=== PATIENT | male | born 1950 | race Caucasian/White ===

== ENCOUNTER 2021-07-31 11:37 | Inpatient (IN) ==
[2021-07-31] MEDS ORDERED: BUMETANIDE 1 MG in SYRINGE 0 ML IV ONE (12:14)
--- NOTE | 2021-07-31 12:15 | Emergency Department Note ---
History of Present Illness General Chief complaint: Shortness of Breath/Dyspnea Stated complaint: CARDIAC ASSESSMENT Time Seen by Provider: 07/31/21 11:41 History of Present Illness 71-year-old male presents to the ED with a chief complaint of some abnormal outpatient test results. He states that Dr. Castro's office called this morning and told him that there was some abnormalities on his test results. Th ey told him to go to the ER for evaluation. The patient states that he has a history of CHF. He does have home health nursing. The patient other than feeling some shortness of breath denies any specific complaints. He states that he did not really want to come to the hospital and try to talk to the home health nurse out of calling the ambulance. Allergies Allergy/AdvReac Type Severity Reaction Status Date / Time Penicillins Allergy Verified 07/18/09 03:11 N Allergy Unknown Uncoded 07/26/02 18:15 NKFA Allergy Unknown Uncoded 07/26/02 18:15 NONE Allergy Unknown Uncoded 07/26/02 18:15 PCN Allergy Unknown Uncoded 07/26/02 18:15 UNKNOWN Allergy Unknown Uncoded 07/26/02 18:15 Past Med/Surg History Social History Smoking Status: Former smoker Tobacco Type: Cigarettes Preferred Language: Irish Feels Safe at Home: Yes Review of Systems A total of 10 systems reviewed and were otherwise negative Physical Exam Vital Signs Vital Signs - 24 hr 07/31/21 11:54 Temperature 36.7 C Temperature Source Oral Pulse Rate [Apical] 83 Pulse Rhythm Regular Pulse Rhythm [Apical] Regular Respiratory Rate 20 Respiratory Effort / Characteristics Non-Labored Spontaneous Respiratory Depth Normal Respiratory Pattern Regular Blood Pressure 131/78 Blood Pressure [Right Arm] 128/73 Blood Pressure Mean 95 Blood Pressure Mean [Right Arm] 91 Blood Pressure Position Semi-fowlers Blood Pressure Position [Right Arm] Lying Pulse Oximetry 96 Oxygen Delivery Method Room Air Sepsis Recent Fever Within 48 Hours No Sepsis New/Unexplained Change in Mental Status No Sepsis Action Taken by Nursing No Action Required CONSTITUTIONAL/VITAL SIGNS: Reviewed / noted above. GENERAL: Non-toxic in appearance. INTEGUMENTARY: Warm, dry, and [place]. HEAD: Normocephalic. EYES: without scleral icterus or trauma. ENT/OROPHARYNX: clear and moist. LYMPHADENOPATHY/NECK: Is supple without lymphadenopathy or meningismus. RESPIRATORY: Clear to auscultation bilaterally. No increased work of breathing. CARDIOVASCULAR: Regular rate and rhythm. GI/ABDOMEN: Soft and nontender. No organomegaly or pulsatile mass. EXTREMITIES: Warm and well perfused. BACK: No CVA tenderness. NEUROLOGICAL: Intact without focal deficits. PSYCHIATRIC: normal affect. MUSCULOSKELETAL: Normally developed with good muscle tone. TRIAGE NURSING DOCUMENTATION REVIEWED. Medical Decision Making Medical Records Attestation: I reviewed the patient's medical records. Home Medications Current Medication List: was personally reviewed by me Laboratory Data Attestation: I reviewed the patient's lab results. Result diagrams: 07/31/21 11:45 07/31/21 11:45 Lab Results 07/31/21 07/31/21 07/31/21 Range/Units 11:45 11:45 13:00 WBC 6.48 (4.8-10.8) K/uL RBC 4.12 L (4.7-6.1) M/uL Hgb 12.5 L (14.0-18.0) g/dL Hct 37.5 L (42-52) % MCV 91.0 (80-100) fL MCH 30.3 (25-34) pg MCHC 33.3 (32-36) g/dL RDW Std Deviation 72.5 H (36.4-46.3) fL RDW Coeff of Joao 22.3 H (11.5-14.5) % Plt Count 355 (130-400) K/uL MPV 10.2 (7.4-10.4) fL Immature Gran % (Auto) 0.3 % Neut % (Auto) 76.1 % Lymph % (Auto) 10.6 % [place] % (Auto) 12.5 % Eos % (Auto) 0.3 % Baso % (Auto) 0.2 % Neut # (Auto) 4.93 (1.4-6.5) K/uL Lymph # (Auto) 0.69 L (1.2-3.4) K/uL [place] # (Auto) 0.81 H (0.11-0.59) K/uL Eos # (Auto) 0.02 (0-0.5) K/uL Baso # (Auto) 0.01 (0-0.2) K/uL Immature Gran # (Auto) 0.02 (0.00-0.02) K/uL Anisocytosis Present Sodium 135 L (136-145) mmol/L Potassium 3.7 (3.5-5.1) mmol/L Chloride 101 (98-107) mmol/L Carbon Dioxide 22 (21-32) mmol/L Anion Gap 12 H (3-11) BUN 15 (6-23) mg/dl Creatinine 0.87 (0.6-1.4) mg/dl Est Cr Clr Drug Dosing 83.5 ml/min Est GFR ( Amer) 101.3 ml/min Est GFR (Non-Af Amer) 87.4 ml/min BUN/Creatinine Ratio 17.2 (10-20) Glucose 93 (70-99(Fasting)) mg/dl Calcium 9.1 (8.5-10.1) mg/dl Total Bilirubin 2.4 H (0.2-1.0) mg/dl AST 32 (13-39) U/L ALT 33 (7-52) U/L Alkaline Phosphatase 238 H (34-104) U/L Troponin I 0.03 (0-0.04) ng/ml Total Protein 7.1 (6.0-8.3) gm/dl Albumin 3.0 L (3.4-5.0) gm/dl Globulin 4.1 H (2.5-4.0) gm/dl Albumin/Globulin Ratio 0.7 L (0.9-2) Lipase 23 (11-82) U/L SARS-CoV-2, RNA, NAAT NEGATIVE (NEGATIVE) Imaging Data Radiologist's Impression: Chest X-Ray 07/31/21 12:05 SINGLE VIEW CHEST CLINICAL HISTORY: Atypical chest pain. FINDINGS: An AP, portable, upright chest radiograph is obtained. No prior studies are available for comparison at the time of dictation. The examination is degraded by portable technique and patient rotation. A 2-lead cardiac AICD is in place and partially obscures the left upper chest. The heart is enlarged noting atherosclerotic calcification of the thoracic aorta. Extensive airspace opacities are seen throughout both lungs. There are small pleural effusions. No pneumothorax is seen. The skeletal structures are osteopenic. The bony thorax is grossly intact. Degenerative change and scoliosis is noted in the thoracic spine. IMPRESSION: 1. Cardiomegaly and AICD. 2. Diffuse airspace opacities are seen throughout both lungs and could represent pulmonary edema and/or multifocal pneumonia. Clinical correlation will be required and radiographic follow-up to resolution is recommended. 3. Small pleural effusions. ACT 112: Negative or not required by law. Electronically signed by: Perry Kauffman M.D. 07/31/2021 12:29 PM ECG Data Attestation: I personally reviewed and interpreted this ECG as follows: Additional Comments: Twelve-lead EKG: Per my interpretation shows a normal sinus rhythm at a rate of 80. No ST elevation. No PVCs. Normal QTC. MDM Narrative 71year-old male presents with a chief complaint of abnormal outpatient studies. The patient's outpatient chest x-ray looks like significant congestive heart failure. Patient is treated by Dr. Castro. He did evaluate the patient in the ED. He feels the patient should stay in the hospital for further evaluation and care and diuresis. The patient was given IV Bumex here. His EKG shows a normal sinus rhythm. Chest x-ray shows diffuse airspace opacities most likely related to pulmonary edema and less likely pneumonia. WBC was normal. Hemoglobin 12.5. Chemistry panel was unremarkable. Troponin is negative. Covid test was negative. Impression & Plan Pulmonary edema, Acute exacerbation of CHF (congestive heart failure) Discharge Plan Visit Data Chief Complaint: Shortness of Breath/Dyspnea Stated Complaint: CARDIAC ASSESSMENT ED Provider: Russell Turk Discharge Problem: Pulmonary edema, Acute exacerbation of CHF (congestive heart failure) Patient Disposition: Being Evaluated by Hospitalist Forms Stand Alone Forms: My [facility] Referrals Referrals: Gabo Cruz MD [Primary Care Provider] -
[2021-07-31 12:30] LABS: Basophils # (auto) 0.01 K/uL (0-0.2); Basophils % (auto) 0.2 %; Eosinophils # (auto) 0.02 K/uL (0-0.5); Eosinophils % (auto) 0.3 %; Hematocrit (blood only) 37.5 % (42-52); Hemoglobin 12.5 g/dL (14.0-18.0); Immature Granulocytes # (auto) 0.02 K/uL (0.00-0.02); Immature Granulocytes % (auto) 0.3 %; Lymphocytes # (auto) 0.69 K/uL (1.2-3.4); Lymphocytes % (auto) 10.6 %; Mean Corpuscular Hemoglobin 30.3 pg (25-34); Mean Corpuscular Hgb Conc 33.3 g/dL (32-36); Mean Platelet Volume 10.2 fL (7.4-10.4); Monocytes # (auto) 0.81 K/uL (0.11-0.59); Monocytes % (auto) 12.5 %; Neutrophils # (auto) 4.93 K/uL (1.4-6.5); Neutrophils % (auto) 76.1 %; Platelet Count 355 K/uL (130-400); RDW Coefficient of Variation 22.3 % (11.5-14.5); RDW Standard Deviation 72.5 fL (36.4-46.3); Red Blood Count 4.12 M/uL (4.7-6.1); White Blood Count 6.48 K/uL (4.8-10.8)
--- NOTE | 2021-07-31 12:31 | XRay Report ---
SINGLE VIEW CHEST CLINICAL HISTORY: Atypical chest pain. FINDINGS: An AP, portable, upright chest radiograph is obtained. No prior studies are available for c omparison at the time of dictation. The examination is degraded by portable technique and patient rot ation. A 2-lead cardiac AICD is in place and partially obscures the left upper chest. The heart is en larged noting atherosclerotic calcification of the thoracic aorta. Extensive airspace opacities are s een throughout both lungs. There are small pleural effusions. No pneumothorax is seen. The skeletal s tructures are osteopenic. The bony thorax is grossly intact. Degenerative change and scoliosis is not ed in the thoracic spine. IMPRESSION: 1. Cardiomegaly and AICD. 2. Diffuse airspace opacities are seen throughout both lungs and could represent pulmonary edema and/ or multifocal pneumonia. Clinical correlation will be required and radiographic follow-up to resoluti on is recommended. 3. Small pleural effusions. ACT 112: Negative or not required by law. Electronically signed by: Perry Kauffman M.D. 07/31/2021 12:29 PM
[2021-07-31 12:47] LABS: Troponin I 0.03 ng/ml (0-0.04)
[2021-07-31 12:48] LABS: Albumin Globulin Ratio 0.7 (0.9-2); BUN Creatinine Ratio 17.2 (10-20); Bilirubin,Total 2.4 mg/dl (0.2-1.0); Calcium 9.1 mg/dl (8.5-10.1); Creatinine Clr Calc Pharmacy 83.5 ml/min; Est GFR (African American) 101.3 ml/min; Est GFR (Non-African American) 87.4 ml/min; Globulin 4.1 gm/dl (2.5-4.0); Potassium 3.7 mmol/L (3.5-5.1); Total Protein 7.1 gm/dl (6.0-8.3)
[2021-07-31 12:50] LABS: Anisocytosis Present
--- NOTE | 2021-07-31 15:07 | Cardiology Consultation ---
Date of Consultation July 31, 2021 Assessment & Plan (1) Acute on chronic HFrEF (heart failure with reduced ejection fraction): (2) Ischemic cardiomyopathy with implantable cardioverter-defibrillator (ICD): -Patient is followed with the undersigned as an outpatient since 2016. At that time he already had a longstanding history of ischemic cardiomyopathy, with LAD territory scar, severe LV systolic dysfunction. He had previously declined primary prevention AICD, and work-up at that time included a nuclear stress test with large distal LAD territory scar, severe LV systolic dysfunction. He was seen by electrophysiology and discussed AICD implantation but ultimately patient declined to have the procedure performed. -In May,, he was at a family wedding in [place] and suffered a witnessed sudden cardiac arrest event while on the dance floor. He received bystander CPR from a family member, and successful resuscitation with an AED. He was subsequently hospitalized at [facility] in [place], underwent cardiac catheterization with left main stenting, implantation of Medtronic AICD. -At the time of outpatient visit with me in March, he was noted to be markedly volume overloaded, 2+ pitting lower extremity edema, weight 215 pounds at that time. His most recent recorded weight in the [facility] outpatient chart was down to 175 pounds as documented within the last week. I am actually quite surprised at the patient's cachectic appearance, and believe that this is new over the last 3 months. Chest x-ray reveals pulmonary edema pattern. SARS-CoV-2 screen negative. 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 Patient has been on low-dose amiodarone 100 mg daily, dose titrated down few months ago, with amiodarone treatment since his May/2019 cardiac arrest event, with findings of nonsustained VT on past device monitoring. Although amiodarone induced lung toxicity could have a similar appearance on the chest x-ray, per comparison with outpatient chest x-ray perf ormed March,, the findings appear new which would support that this is congestive heart failure. This will need to be followed to see if it improves with diuretic therapy. The patient once again describes nonadherence with outpatient diuretic therapy, with noted painful, vigorous urination. He states he has been off of diuretic therapy for at least 2 weeks or at least has been taking less than his prescribed dose. At present we will plan on starting Bumex 1 mg x 1 in the ER, and 1 mg daily for now, with dose to be adjusted per the response. His most recent PSA was in 2013. Given ongoing urinary symptoms and cachexia will obtain PSA. Continue chronic aspirin and clopidogrel. As noted, had previously been on aspirin plus prasugrel, subsequently discontinued after profound anemia/GI bleeding event. Recent TSH as drawn on 07/29/2021 was elevated at 16.5 microunits units per liter, and levothyroxine dose was titrated to 75 g daily on 07/30/2021, however patient really has not had time to start this yet. History of Present Illness History of Present Illness Marquis Nolan is a 71-year-old male seen in cardiology consultation per the request of Dr. Turk for the evaluation of shortness of breath. Patient well- known to the undersigned. He has a complex cardiac history as noted below, and is followed for ischemic cardiomyopathy with severe left ventricular systolic dysfunction. He has had progressive shortness of breath. At the time of his cardiology follow-up visit with the undersigned in March, he was transitioned to torsemide. At time of follow-up visit on 06/18/2021 his weight had trended up, torsemide dose increased from 20 mg daily to 20 mg daily alternating with 40 mg daily. Patient has had progressive shortness of breath, weight gain, chest x-ray performed per the request of Corey at home this week on 07/29/2021 consistent with congestive heart failure with severe bilateral pulmonary edema. At the time my assessment in the emergency department. Patient was noted to have generalized weakness and noted cachexia which I feel has progressed over the last year and certainly over the last few months since I had seen him as an outpatient in March. Problem List: 1.Longstanding history of ischemic heart disease, severe ischemic cardiomyopathy 2.Remote LAD territory myocardial infarction circa 1999 3.Cardiac catheterization performed at [facility], without intervention per patient. 4.Apical aneurysm, previously prescribed Coumadin anticoagulation discontinued by the patient in May 2017 5.Witnessed cardiac arrest in May 2019, with return of spontaneous circulation prior to EMS arrival. Ejection fraction 15 to 19% at that time 6.NYHA Class III (recent III-IV) Systolic Congestive Heart Failure. 7.Cardiac catheterization ([facility]) on 06/14/2019 revealed a 70-75% stenosis of the ostium of the left main trunk, 40% stenosis of the LAD, 35% diffuse disease the proximal right coronary artery stenosis, status post high risk PCI on 06/15/2019, successful drug-eluting stent implantation to the left main 8.Status post Medtronic dual-chamber pacemaker defibrillator implantation on June 18, 2019 ([place]) 9.Hospitalization in December 2020 with pneumonia 10.Hospitalization in December 2020 a couple of days after being discharged from the pneumonia hospitalization with severe symptomatic anemia, hemoglobin of 5.4. Profound acute blood loss attributed to duodenitis in the setting of chronic anti-platelet therapy (aspirin, prasugrel). 11.Hypertension 12.Hyperlipidemia with perceived intolerance to most lipid lowering therapies, tolerating atorvastatin. 13.GERD. Allergies Allergy/AdvReac Type Severity Reaction Status Date / Time Penicillins Allergy Verified 07/18/09 03:11 N Allergy Unknown Uncoded 07/26/02 18:15 NKFA Allergy Unknown Uncoded 07/26/02 18:15 NONE Allergy Unknown Uncoded 07/26/02 18:15 PCN Allergy Unknown Uncoded 07/26/02 18:15 UNKNOWN Allergy Unknown Uncoded 07/26/02 18:15 Patient History Social History Smoking Status: Former smoker Tobacco Type: Cigarettes Preferred Language: Cook Islander Feels Safe at Home: Yes Review of Systems Review of Systems: All systems reviewed & are unremarkable except as noted in HPI & below Integumentary: Ecchymosis over the right shoulder noted, with recent "falls "per patient Physical Exam Physical Exam: Temp Pulse Resp BP Pulse Ox 36.7 C 83 20 128/79 93 07/31/21 13:54 07/31/21 13:54 07/31/21 13:54 07/31/21 13:54 07/31/21 13:54 Constitutional: + cachectic Respiratory: normal respiratory effort, lungs clear to auscultation Cardiovascular: Rate/Rhythm: regular rate and regular rhythm Heart Sounds: no murmur Vessels: + JVD Extremities: + edema (1+ lower extremity edema, mild erythema, several ulcerations) Chest (Breasts): Additional Comments: Left infraclavicular device pocket clean dry and intact Gastrointestinal (Abdomen): normal bowel sounds, soft, nontender, no hepatosplenomegaly Skin: Ecchymosis over the right shoulder with multiple recent "falls ". Neurologic: PERRL, EOMI, accommodation nl, no face palsy, no dysarthria Results & Data ([facility]) Vital Signs (Past 12 Hours) Vital Signs Temp Pulse Resp BP BP Pulse Ox 07/31/21 13:54 36.7 C 83 20 128/79 93 07/31/21 11:54 36.7 C 83 20 131/78 128/73 96 Laboratory Results Cardiac Enzymes 07/31/21 Range/Units 11:45 AST 32 (13-39) U/L Troponin I 0.03 (0-0.04) ng/ml CBC 07/31/21 Range/Units 11:45 WBC 6.48 (4.8-10.8) K/uL RBC 4.12 L (4.7-6.1) M/uL Hgb 12.5 L (14.0-18.0) g/dL Hct 37.5 L (42-52) % Plt Count 355 (130-400) K/uL Neut # (Auto) 4.93 (1.4-6.5) K/uL Lymph # (Auto) 0.69 L (1.2-3.4) K/uL [place] # (Auto) 0.81 H (0.11-0.59) K/uL Eos # (Auto) 0.02 (0-0.5) K/uL Baso # (Auto) 0.01 (0-0.2) K/uL Comprehensive Metabolic Panel 07/31/21 Range/Units 11:45 Sodium 135 L (136-145) mmol/L Potassium 3.7 (3.5-5.1) mmol/L Chloride 101 (98-107) mmol/L Carbon Dioxide 22 (21-32) mmol/L BUN 15 (6-23) mg/dl Creatinine 0.87 (0.6-1.4) mg/dl Glucose 93 (70-99(Fasting)) mg/dl Calcium 9.1 (8.5-10.1) mg/dl AST 32 (13-39) U/L ALT 33 (7-52) U/L Alkaline Phosphatase 238 H (34-104) U/L Total Protein 7.1 (6.0-8.3) gm/dl Albumin 3.0 L (3.4-5.0) gm/dl Intake and Output 07/30/21 07/31/21 07/31/21 22:59 06:59 14:59 Other: Weight 84.3 kg Weight Measurement Method Built in [facility] Patient Weight 08/01/21 06:59 Weight 84.3 kg Diagnostic Findings EKG performed 07/31/2021 reveals normal sinus rhythm 81 bpm, nonspecific IVCD, age-indeterminate anterolateral infarction pattern, relatively unchanged compared to outpatient EKG dated 03/31/2021 Summary of transthoracic echocardiogram performed 10/29/2019: The left ventricular cavity is severely dilated (LVED volume >100 ml/m^2). The wall thickness is mildly increased in segments with normal wall motion. There is an extensive left anterior descending distribution infarct present with scarring and moderate expansion of the apex including the atypical inferior wall. All other wall segments are mildly hypokinetic The qualitative LV ejection fraction is 25-29% (severely reduced). The left atrium is moderately enlarged (42-48 ml/m^2). The left ventricular diastolic function is mildly abnormal (grade I). Moderate aortic valve sclerosis is present. Significant mitral regurgitation is absent. Compared to last available study changes are noted as follows: Mitral insufficiency has decreased, LV apex better visualized
--- NOTE | 2021-07-31 15:20 | History & Physical Report ---
Date of Service July 31, 2021 Assessment & Plan (1) Acute on chronic HFrEF (heart failure with reduced ejection fraction): (2) Ischemic cardiomyopathy with implantable cardioverter-defibrillator (ICD): Plan: Patient is a 71-year-old male with PMH severe ischemic cardiomyopathy, H/O cardiac arrest 2018, s/p ICD, CAD, HTN, HLD, GERD, hypothyroidism presented to ER with complaint BLE edema, exertional SOB, and abnormal chest x-ray. Has noncompliant with diuretics for several weeks as he felt like he urinated too much and it caused burning with urination. Had outpatient CXR on 07/29/21 that showed severe congestive change with diffuse airspace opacities and was referred to ER. In ER patient afebrile, vitals stable. No leukocytosis CXR: Diffuse airspace opacities are seen throughout both lungs and could represent pulmonary edema and/or multifocal pneumonia. Small pleural effusions. Appears to be volume overloaded, and less likely pneumonia, procalcitonin not elevated In ER given bumex 1mg IV Patient starting to urinate, had initial 300ml urine output approximately 20 minutes after Bumex given Continue to monitor I's and O's, daily weight, follow low sodium diet Bumex 1mg IV daily Cardiology consult, spoke to Dr Chase and recommended Bumex 1mg daily Continue amiodarone CBC, BMP in am (3) Leg edema: Plan: Suspect BLE erythema secondary to edema and less likely cellulitis Will hold antibiotics at this time Venous duplex r/o DVT arterial duplex RLE to r/o occlusion (4) CAD (coronary artery disease): Plan: Continue aspirin, plavix, atorvastatin, metoprolol succinate (5) HTN (hypertension): Plan: Continue metoprolol succinate (6) HLD (hyperlipidemia): Plan: Continue statin (7) Hypothyroidism: Plan: Outpatient TSH 16.5 on 07/29/21. Was instructed to increase levothyroxine from 25mcg daily to 50mcg daily x 2 weeks followed by 75mcg daily Continue levothyroxine 50mcg daily Will need outpatient TSH follow up DVT Prophylaxis Lovenox SQ Full Code as per discussion with pt Follows with Dr Cruz for routine care Pt was seen and care coordinated with Dr Nicholson. See addendum History of Present Illness Chief Complaint: abnormal CXR, LE edema Primary Care Provider: Gabo Cruz MD Patient is a 71-year-old male with PMH severe ischemic cardiomyopathy, H/O cardiac arrest 2019, s/p ICD, CAD, HTN, HLD, GERD, hypothyroidism presented to ER with complaint of abnormal chest x-ray. Patient has been followed outpatient with [facility] [place]. Patient has been noncompliant with diuretics for several weeks as he felt like he urinated too much and it caused burning with urination. Recent reported increased BLE edema with erythema and weeping. Patient feels his BLE edema and erythema have improved over past several days. Was started on doxycycline yesterday. Also reports SOB with exertion. Has nonproductive cough. Had outpatient CXR on 07/29/21 that showed severe congestive change with diffuse airspace opacities and was referred to ER. Patient does admit to falling at home a couple of times over past few months. States most recent fall and swelling to right hand which has since improved. Denies fever/chills, diaphoresis, N/V/D/C, KIM, dizziness, syncope, vision changes, neck pain, CP, palpitations, sore throat, choking, otalgia, rhinorrhea, abdominal pain, paresthesias, extremity weakness, other rashes, hematuria. Allergies Allergy/AdvReac Type Severity Reaction Status Date / Time ezetimibe [From Zetia] Allergy Unknown Unverified 07/31/21 16:58 gemfibrozil Allergy Unknown Unverified 07/31/21 16:56 Penicillins Allergy Verified 07/18/09 03:11 simvastatin Allergy Unknown Unverified 07/31/21 16:57 Home Medications Medication Instructions Recorded Confirmed Type Lactobacillus acidophilus 1.5 mg 250 mmu cells PO DAILY 07/31/21 07/31/21 History (250 million cell) capsule (Probiotic Acidophilus) amiodarone 100 mg tablet 100 mg PO DAILY 07/31/21 07/31/21 History aspirin 81 mg tablet,delayed 81 mg PO DAILY 07/31/21 07/31/21 History release atorvastatin 40 mg tablet 60 mg PO DAILY 07/31/21 07/31/21 History cefpodoxime 200 mg tablet 200 mg PO BID 07/31/21 07/31/21 History clopidogrel 75 mg tablet 75 mg PO DAILY 07/31/21 07/31/21 History doxycycline hyclate 100 mg capsule 100 mg PO BID 07/31/21 07/31/21 History fluticasone propionate 50 2 spray INTRANASAL DAILY 07/31/21 07/31/21 History mcg/actuation nasal spray,suspension levothyroxine 75 mcg tablet 75 mcg PO DAILYBB 07/31/21 07/31/21 History metoprolol succinate 25 mg 25 mg PO DAILY 07/31/21 07/31/21 History tablet,extended release 24 hr nitroglycerin 0.4 mg sublingual 0.4 mg SUBLINGUAL UD PRN 07/31/21 07/31/21 History tablet potassium chloride 10 mEq 30 meq PO Q2D 07/31/21 07/31/21 History capsule,extended release potassium chloride 10 mEq 40 meq PO Q2D 07/31/21 07/31/21 History capsule,extended release potassium chloride 10 mEq 20 meq PO Q2D 07/31/21 07/31/21 History tablet,extended release(part/cryst) (Klor-Con M) potassium chloride 10 mEq 40 meq PO Q2D 07/31/21 07/31/21 History tablet,extended release(part/cryst) (Klor-Con M) torsemide 20 mg tablet 20 mg PO UD 07/31/21 07/31/21 History tramadol 50 mg tablet 50 mg PO BID PRN 07/31/21 07/31/21 History Past Med/Surg History Medical History (Updated 07/31/21 @ 18:28 by Pina Lara PA-C) CAD (coronary artery disease) Chronic heart failure with reduced ejection fraction and diastolic dysfunction GERD (gastroesophageal reflux disease) HLD (hyperlipidemia) HTN (hypertension) Hypothyroidism ICD (implantable cardioverter-defibrillator) in place 06/18/19 placed at [facility] Surgical History (Updated 07/31/21 @ 16:21 by Pina Lara PA-C) Hx of cardiac cath 06/15/19: left main, [facility], [facility] Family History (Updated 07/31/21 @ 16:22 by Pina Lara PA-C) Mother Breast cancer Social History (Updated 07/31/21 @ 16:22 by Pina Lara PA-C) Smoking Status: Never smoker Tobacco Type: Cigarettes Hx Alcohol Use: Yes Alcohol type: hard liquor Hx Substance Use: No Preferred Language: Macanese Communication Ability: Effective English Composition Instructor Required: No Beliefs That Will Affect Care: None Current Living Situation: Alone Current Living Situation Comment: HOME ALONE Other Information That Helps Us Care for You: No Feels Safe at Home: Yes Safety Concerns: Feels Safe At This Time Assistive Devices: Cane, Oxygen - at Night and Walker Review of Systems Review of Systems: All systems reviewed & are unremarkable except as noted in HPI & below Physical Exam Physical Exam: General: no distress, cachectic Head: normocephalic, atraumatic Eyes: PERRL, EOM's intact, conjunctiva non-injected, anicteric ENT: normal inspection external ears, nose, mucous membranes moist Neck: supple, trachea midline Lungs: clear, no respiratory distress, no wheezing/rhonchi/rales CV: RRR, 1-2+ pretibial edema Abd: normal BS, soft, non-tender Ext: no cyanosis, no calf tenderness Neuro: A&O x 3, no focal deficits noted, normal affect Skin: warm, dry, +ecchymosis RUE, right flank, bilateral lower extremities with erythema without warmth, multiple ulcers noted to right foot without discharge Results & Data Results & Data ([facility]) Vital Signs (Past 12 Hours) Vital Signs Temp Pulse Resp BP BP Pulse Ox 07/31/21 13:54 36.7 C 83 20 128/79 93 07/31/21 11:54 36.7 C 83 20 131/78 128/73 96 Laboratory Results Short CBC 07/31/21 Range/Units 11:45 WBC 6.48 (4.8-10.8) K/uL Hgb 12.5 L (14.0-18.0) g/dL Hct 37.5 L (42-52) % Plt Count 355 (130-400) K/uL BMP 07/31/21 11:45 Sodium 135 L Potassium 3.7 Chloride 101 Carbon Dioxide 22 BUN 15 Creatinine 0.87 Glucose 93 Calcium 9.1 Cardiac Enzymes 07/31/21 Range/Units 11:45 Troponin I 0.03 (0-0.04) ng/ml Liver Function 07/31/21 Range/Units 11:45 Total Bilirubin 2.4 H (0.2-1.0) mg/dl AST 32 (13-39) U/L ALT 33 (7-52) U/L Alkaline Phosphatase 238 H (34-104) U/L Albumin 3.0 L (3.4-5.0) gm/dl Diagnostic Findings Chest X-Ray 07/31/21 12:05 SINGLE VIEW CHEST CLINICAL HISTORY: Atypical chest pain. FINDINGS: An AP, portable, upright chest radiograph is obtained. No prior studies are available for comparison at the time of dictation. The examination is degraded by portable technique and patient rotation. A 2-lead cardiac AICD is in place and partially obscures the left upper chest. The heart is enlarged noting atherosclerotic calcification of the thoracic aorta. Extensive airspace opacities are seen throughout both lungs. There are small pleural effusions. No pneumothorax is seen. The skeletal structures are osteopenic. The bony thorax is grossly intact. Degenerative change and scoliosis is noted in the thoracic spine. IMPRESSION: 1. Cardiomegaly and AICD. 2. Diffuse airspace opacities are seen throughout both lungs and could represent pulmonary edema and/or multifocal pneumonia. Clinical correlation will be required and radiographic follow-up to resolution is recommended. 3. Small pleural effusions. ACT 112: Negative or not required by law. Electronically signed by: Perry Kauffman M.D. 07/31/2021 12:29 PM Supervising Physician Co-Signing Physician Notes This is a 71 year old male with ischemic cardiomyopathy, chronic systolic CHF who presented to the ED with abnormal OP chest xray 07/29 which showed opacities. Non compliant to diuretics and had bilateral leg swelling with erythema and weeping which has been improving recently but no fever, chills, nausea, vomiting. Afebrile, hemodynamically stable in ED, saturating well in room air. Diagnosed with acute on chronic diastolic CHF and started on bumex per cardiology. Already putting out a good urine output. Continue bumex, daily weight, strict intake and output, monitor labs, telemetry. Counseled on importance of compliance to diuretics, salt and fluid. He was prescribed doxycycline yesterday of which he took 1 dose but no evidence of cellulitis in LE. Just Old healed, scabbed wounds +. Monitor. I have seen and examined the patient. I have reviewed the chart. Discussed plan of care with MELLISSA and agree with her documentation above.
--- NOTE | 2021-07-31 17:08 | Electrocardiogram Report ---
Test Reason : Blood Pressure : / mmHG Vent. Rate : 081 BPM Atrial Rate : 081 BPM P-R Int : 172 ms QRS Dur : 144 ms QT Int : 438 ms P-R-T Axes : 037 -49 130 degrees QTc Int : 508 ms Normal sinus rhythm Possible Left atrial enlargement Left axis deviation Non-specific intra-ventricular conduction block Possible Anterolateral infarct (cited on or before 22-JUN-2001) Abnormal ECG When compared with ECG of 25-JUN-2001 07:19, QRS duration has increased Confirmed by Homar Ku ([id number]) on 07/31/2021 5:07:35 PM Referred By: REFERRED SELF Confirmed By:Homar Ku
[2021-07-31] MEDS ORDERED: NITROGLYCERIN SL 0.4 MG/TAB TAB SL PRN (17:42)
[2021-07-31] MEDS ORDERED: INFLUENZA VACCINE HIGH DOSE PF 65+ 0.7 ML SYR IM ONE (21:00)
[2021-07-31] MEDS: traMADol HCL 50 MG TABLET PO PRN (21:24)
[2021-07-31] MEDS: ACETAMINOPHEN 325 MG TAB PO PRN (21:25)
[2021-07-31] MEDS: ENOXAPARIN INJ 40 MG/0.4 ML SYR SQ SCH (21:27)
--- NOTE | 2021-07-31 23:39 | Ultrasound Report ---
BILATERAL LOWER EXTREMITY VENOUS DOPPLER HISTORY: Acute pain and swelling of the lower legs r/o DVT COMPARISON STUDY: Arterial Doppler of same day FINDINGS: There is normal compressibility, flow, and augmentation within the bilateral lower extremit y deep venous systems. Occlusive superficial venous thrombus within the right popliteal fossa extends for a length of 3.7 cm. This is not in close proximity to the deep venous confluence. Subcutaneous e edwin. Bilateral Goddard's cysts measure up to 2.3 cm on the right. There is a 5.8 x 1.1 x 1.5 cm comple x hypoechoic collection within the right posterior calf. IMPRESSION: 1. No DVT within the right or left lower extremity. 2. Short segment (less than 5 cm) superficial venous thrombus of the right lower extremity. 3. Suggested hematoma of the right calf measures 5.8 cm. ACT 112: Negative or not required by law. Electronically signed by: Hussein Salazar M.D. 07/31/2021 11:38 PM
--- NOTE | 2021-07-31 23:42 | Ultrasound Report ---
US arterial duplex LE RT HISTORY: 71 years-old Male r/o occlusion acute pain and swelling of the lower legs COMPARISON: Duplex venous Doppler study TECHNIQUE: Multiple real-time sonographic images of the right lower extremity arterial structures wer e obtained assessing grayscale appearance, color and spectral flow FINDINGS: There is diffuse atherosclerotic vascular disease. No elevated peak systolic velocities to suggest hi gh-grade stenosis. There are probably triphasic waveforms noted above the level of the knee. Monophas ic and biphasic waveforms are noted within the popliteal and calf arteries. Blunted monophasic wavefo behzad in the dorsalis pedis artery. IMPRESSION: 1. No arterial occlusion or elevated peak systolic velocities to suggest high-grade stenosis. 2. Monophasic and biphasic waveforms of the right lower leg. ACT 112: Negative or not required by law. The above report was generated using voice recognition software. It may contain grammatical, syntax o r spelling errors. Electronically signed by: Hussein Salazar M.D. 07/31/2021 11:40 PM
[2021-08-01] MEDS: LEVOTHYROXINE SODIUM 50 MCG TABLET PO SCH (06:14)
[2021-08-01 06:49] LABS: Hematocrit (blood only) 35.2 % (42-52); Hemoglobin 11.7 g/dL (14.0-18.0); Mean Corpuscular Hgb Conc 33.2 g/dL (32-36); Mean Corpuscular Volume 90.3 fL (80-100); Mean Platelet Volume 10.1 fL (7.4-10.4); Platelet Count 311 K/uL (130-400); RDW Coefficient of Variation 22.4 % (11.5-14.5); RDW Standard Deviation 72.5 fL (36.4-46.3); White Blood Count 4.95 K/uL (4.8-10.8)
[2021-08-01 07:13] LABS: BUN Creatinine Ratio 17.1 (10-20); Calcium 8.4 mg/dl (8.5-10.1); Creatinine Clr Calc Pharmacy 88.6 ml/min; Est GFR (African American) 103.8 ml/min; Est GFR (Non-African American) 89.6 ml/min; Potassium 3.3 mmol/L (3.5-5.1)
[2021-08-01] MEDS: FLUTICASONE PROPIONATE NA SPR 16 GM BTL NAE SCH (07:49)
[2021-08-01] MEDS: ASPIRIN 81 MG ECTAB PO SCH (07:49)
[2021-08-01] MEDS: ATORVASTATIN 40 MG TAB PO SCH (07:50)
[2021-08-01] MEDS: POTASSIUM CHLORIDE CRTAB 20 MEQ TABCR PO SCH (07:50)
[2021-08-01] MEDS: AMIODARONE 200 MG TAB PO SCH (07:50)
[2021-08-01] MEDS: CLOPIDOGREL BISULFATE 75 MG TAB PO SCH (07:51)
[2021-08-01] MEDS: BUMETANIDE 1 MG in SYRINGE 0 ML IV SCH (08:19)
[2021-08-01] MEDS ORDERED: METOPROLOL SUCC 25MG EXT REL TAB PO SCH (09:00)
[2021-08-01] MEDS ORDERED: POTASSIUM CHLORIDE CRTAB 20 MEQ TABCR PO STA (09:33)
[2021-08-01] MEDS: DOXYCYCLINE HYCLATE 100 MG CAP PO SCH ×2 (12:35→20:31)
--- NOTE | 2021-08-01 15:11 | Cardiology Progress Note ---
Date of Service August 01, 2021 Assessment & Plan (1) Acute on chronic HFrEF (heart failure with reduced ejection fraction): (2) Ischemic cardiomyopathy with implantable cardioverter-defibrillator (ICD): (3) NSVT (nonsustained ventricular tachycardia): Plan: Volume status improving. Continue daily Bumex. Monitor fluid balance, daily weight, GFR, and electrolytes. Repeat serum magnesium level today. Replace as indicated. Continue low-dose amiodarone. Titrate Toprol-XL to 25 mg twice daily given episode of nonsustained ventricular tachycardia overnight. Consider titration of amiodarone to 200 mg twice daily with any significant recurrence. Consider addition of ARB versus Entresto pending blood pressure response to IV diuretic therapy. Admission and Anticipated Discharge Date Admission Date: July 31, 2021 Subjective Patient seen and examined the bedside. Fluid balance -2.2 L. GFR remains stable. Tolerating Bumex once daily. Lower extremity edema improving. Denies orthopnea, PND or palpitations. Telemetry reveals sinus rhythm, bundle branch block, and a 29 beat hansa of ventricular tachycardia overnight. Hypokalemia noted on a.m. labs, however, serum magnesium was not assessed. Patient received 40 mEq of oral potassium this morning. Review of Systems 2 Review of Systems: All systems reviewed & are unremarkable except as noted in Subjective Physical Exam Constitutional: + ill appearing and + cachectic Respiratory: normal respiratory effort; no respiratory distress and no labored breathing Auscultation: + diminished lung sounds (Bilateral) and + rales; no rhonchi and no wheezes Cardiovascular: Rate/Rhythm: regular rate and regular rhythm Heart Sounds: normal S1 and normal S2; no murmur Vessels: + JVD and radial pulses present; no carotid bruit Extremities: + edema (1+ bilateral pretibial) Gastrointestinal (Abdomen): Inspection/Auscultation: normal bowel sounds; abdomen not distended Percussion/Palpation: abdomen soft; abdomen nontender, no guarding and abdomen not rigid Neurologic: CN's II-XI intact bilaterally and moves all extremities; no focal motor deficits Results & Data ([facility]) Vital Signs (Past 12 Hours) Vital Signs Temp Pulse Pulse Resp BP Pulse Ox 08/01/21 11:42 36.5 C 92 H 18 100/64 96 08/01/21 07:43 36.3 C L 79 18 126/60 98 08/01/21 07:22 82 08/01/21 03:38 84 20 133/72 92
--- NOTE | 2021-08-01 16:26 | Hospitalist Progress Note ---
Date of Service August 01, 2021 Assessment & Plan (1) Acute on chronic HFrEF (heart failure with reduced ejection fraction): Plan: Presented with bilateral leg edema, exertional shortness of breath, weight gain but no chest pain and/or palpitation CXR: Diffuse airspace opacities are seen throughout both lungs and could represent pulmonary edema and/or multifocal pneumonia. Small pleural effusions. Appears to be volume overloaded, and less likely pneumonia, procalcitonin not elevated In ER given bumex 1mg IV and that was continued Has been diuresing well and getting better Continue to monitor I's and O's, daily weight, follow low sodium diet Cardiology consult, spoke to Dr Chase and recommended Bumex 1mg daily - appreciate cardiology input and recommendation Continue amiodarone We will monitor PRP and replace electrolytes as needed (2) Ischemic cardiomyopathy with implantable cardioverter-defibrillator (ICD): Plan: Patient is a 71-year-old male with PMH severe ischemic cardiomyopathy, H/O cardiac arrest 2018, s/p ICD, CAD, HTN, HLD, GERD, hypothyroidism presented to ER with complaint BLE edema, exertional SOB, and abnormal chest x-ray. Has noncompliant with diuretics for several weeks as he felt like he urinated too much and it caused burning with urination. Had outpatient CXR on 07/29/21 that showed severe congestive change with diffuse airspace opacities and was referred to ER. Echo of the heart showed- LV moderately dilated, LV systolic function is severely reduced at 25 to 30%, RV is moderately dilated, RV systolic function is qualitatively normal, severe biatrial enlargement, aortic valve sclerosis mild without significant stenosis, mild AR, moderate MR, mild to moderate tricuspid regurgitation, dilated inferior vena cava with reduced collapsibility with stiff indicating elevated right atrial pressure of 15 mmHg, trivial anterior and apical pericardial effusion with moderate organization, no echocardiographic indications of cardiac tamponade, diastolic dysfunction grade 3 and a small bilateral pleural effusion, (3) Leg edema: Plan: Suspect BLE erythema secondary to edema and less likely cellulitis Will hold antibiotics at this time Venous duplex r/o DVT arterial duplex RLE to r/o occlusion-no arterial occlusion (4) CAD (coronary artery disease): Plan: Continue aspirin, plavix, atorvastatin, metoprolol succinate (5) HTN (hypertension): Plan: Continue metoprolol succinate (6) HLD (hyperlipidemia): Plan: Continue statin (7) Hypothyroidism: Plan: Outpatient TSH 16.5 on 07/29/21. Was instructed to increase levothyroxine from 25mcg daily to 50mcg daily x 2 weeks followed by 75mcg daily Continue levothyroxine 50mcg daily Will need outpatient TSH follow up DVT Prophylaxis Lovenox SQ Full Code as per discussion with pt Follows with Dr Cruz for routine care We will get PT and OT evaluation prior to discharge Admission and Anticipated Discharge Date Admission Date: July 31, 2021 Subjective 08/01/2021 The patient was seen and examined in telemetry unit He was admitted with acute shortness of breath secondary to acute on chronic CHF Has been getting intravenous Bumex and clinically much better Wanted to have his antibiotic to be continued for pneumonia Review of Systems Review of Systems: All systems reviewed and are unremarkable except as noted below Respiratory: Minimal shortness of breath at rest Physical Exam Physical Exam: Sitting at the edge of the bed with minimal shortness of breath Constitutional: + ill appearing and average body habitus Eyes: PERRL, conjunctivae normal, anicteric sclerae ENMT: external ear and nose normal, oropharynx normal Neck: trachea midline, no thyromegaly Respiratory: + respiratory distress (Minimal shortness of breath at rest) Auscultation: + diminished lung sounds, + crackles (At the bases) and + wheezes (Minimal wheezing) Cardiovascular: Rate/Rhythm: regular rate and regular rhythm; not tachycardic Heart Sounds: normal S1, normal S2 and + murmur (2/6 ESM over precordium) Extremities: + edema (1+ edema bilaterally, chronic with chronic skin changes and a few ulcers) Gastrointestinal (Abdomen): Inspection/Auscultation: normal bowel sounds; abdomen not distended Percussion/Palpation: abdomen soft; abdomen nontender Musculoskeletal: No acute arthritis in any joint Neurologic: Alert, awake and oriented x3 Results & Data Results & Data ([facility]) Vital Signs (Past 12 Hours) Vital Signs Temp Pulse Pulse Resp BP Pulse Ox 08/01/21 15:26 76 08/01/21 11:42 36.5 C 92 H 18 100/64 96 08/01/21 07:43 36.3 C L 79 18 126/60 98 08/01/21 07:22 82 Laboratory Results Short CBC 08/01/21 Range/Units 06:16 WBC 4.95 (4.8-10.8) K/uL Hgb 11.7 L (14.0-18.0) g/dL Hct 35.2 L (42-52) % Plt Count 311 (130-400) K/uL [facility] 08/01/21 06:16 Sodium 137 Potassium 3.3 L Chloride 106 Carbon Dioxide 22 BUN 14 Creatinine 0.82 Glucose 72 Calcium 8.4 L Medications Administered Current Inpatient Medications Acetaminophen (Acetaminophen 325 Mg Tab) 650 mg PO Q4H PRN PRN Reason: Pain or Fever Stop: 08/30/21 17:41 Last Admin: 07/31/21 21:25 Dose: 650 mg Documented by: Amiodarone HCl (Amiodarone 200 Mg Tab) 100 mg PO DAILY FLORESITA Stop: 08/31/21 08:59 Last Admin: 08/01/21 07:50 Dose: 100 mg Documented by: Aspirin (Aspirin 81 Mg Ectab) 81 mg PO DAILY FLORESITA Stop: 08/31/21 08:59 Last Admin: 08/01/21 07:49 Dose: 81 mg Documented by: Atorvastatin Calcium (Atorvastatin 40 Mg Tab) 60 mg PO DAILY FLORESITA Stop: 08/31/21 08:59 Last Admin: 08/01/21 07:50 Dose: 60 mg Documented by: Clopidogrel Bisulfate (Clopidogrel Bisulfate 75 Mg Tab) 75 mg PO DAILY FLORESITA Stop: 08/31/21 08:59 Last Admin: 08/01/21 07:51 Dose: 75 mg Documented by: Doxycycline Hyclate (Doxycycline Hyclate 100 Mg Cap) 100 mg PO BID [facility] Stop: 08/08/21 11:44 Last Admin: 08/01/21 12:35 Dose: 100 mg Documented by: Enoxaparin Sodium (Enoxaparin Inj 40 Mg/0.4 Ml Syr) 40 mg SQ QPM FLORESITA Stop: 08/30/21 20:59 Last Admin: 07/31/21 21:27 Dose: 40 mg Documented by: Fluticasone Propionate (Fluticasone Propionate Na Spr 16 Gm Btl) 2 sprays FITO D LORNAY FLORESITA Stop: 08/31/21 08:59 Last Admin: 08/01/21 07:49 Dose: 2 sprays Documented by: Bumetanide 1 mg/ Syringe 4 mls @ 4 mls/min IV DAILY FLORESITA Stop: 08/31/21 08:59 Last Admin: 08/01/21 08:19 Dose: 4 mls/min Documented by: Levothyroxine Sodium (Levothyroxine Sodium 50 Mcg Tablet) 50 mcg PO DAILYBB [facility] Stop: 08/31/21 06:29 Last Admin: 08/01/21 06:14 Dose: 50 mcg Documented by: Metoprolol Succinate (Metoprolol Succ 25mg Ext Rel Tab) 25 mg PO BID [facility] Stop: 08/31/21 20:59 Nitroglycerin (Nitroglycerin Sl 0.4 Mg/Tab Tab) 0.4 mg SL UD PRN PRN Reason: Chest Pain Stop: 08/30/21 17:41 Potassium Chloride (Potassium Chloride Crtab 20 Meq Tabcr) 40 meq PO QAM [facility] Stop: 08/31/21 08:59 Last Admin: 08/01/21 07:50 Dose: 40 meq Documented by: Tramadol HCl (Tramadol Hcl 50 Mg Tablet) 50 mg PO BID PRN PRN Reason: Severe Pain (Scale Score 7-10) Stop: 08/30/21 17:41 Last Admin: 07/31/21 21:24 Dose: 50 mg Documented by:
[2021-08-01] MEDS: traMADol HCL 50 MG TABLET PO PRN (18:40)
[2021-08-01] MEDS ORDERED: MAGNESIUM SULFATE / D5W 1 GM/100 ML BAG IV ONE (19:30)
[2021-08-01] MEDS: POLYETHYLENE (MIRALAX) 17 GM PACK PO SCH (20:30)
[2021-08-01] MEDS: METOPROLOL SUCC 25MG EXT REL TAB PO SCH (20:30)
[2021-08-01] MEDS: ENOXAPARIN INJ 40 MG/0.4 ML SYR SQ SCH (20:32)
[2021-08-02] MEDS: LEVOTHYROXINE SODIUM 50 MCG TABLET PO SCH (05:16)
[2021-08-02] MEDS: METOPROLOL SUCC 25MG EXT REL TAB PO SCH ×2 (07:17→21:29)
[2021-08-02] MEDS: CLOPIDOGREL BISULFATE 75 MG TAB PO SCH (07:17)
[2021-08-02] MEDS: ATORVASTATIN 40 MG TAB PO SCH (07:17)
[2021-08-02] MEDS: AMIODARONE 200 MG TAB PO SCH (07:18)
[2021-08-02] MEDS: ASPIRIN 81 MG ECTAB PO SCH (07:18)
[2021-08-02] MEDS: POTASSIUM CHLORIDE CRTAB 20 MEQ TABCR PO SCH (07:18)
[2021-08-02] MEDS: DOXYCYCLINE HYCLATE 100 MG CAP PO SCH ×2 (07:20→21:17)
[2021-08-02] MEDS: BUMETANIDE 1 MG in SYRINGE 0 ML IV SCH (07:20)
[2021-08-02] MEDS: FLUTICASONE PROPIONATE NA SPR 16 GM BTL NAE SCH (07:27)
[2021-08-02 08:30] LABS: BUN Creatinine Ratio 18.2 (10-20); Calcium 8.7 mg/dl (8.5-10.1); Creatinine Clr Calc Pharmacy 75.6 ml/min; Est GFR (African American) 100.9 ml/min; Potassium 3.9 mmol/L (3.5-5.1)
--- NOTE | 2021-08-02 12:31 | Cardiology Progress Note ---
Date of Service August 02, 2021 Assessment & Plan (1) Acute on chronic HFrEF (heart failure with reduced ejection fraction): (2) Ischemic cardiomyopathy with implantable cardioverter-defibrillator (ICD): (3) NSVT (nonsustained ventricular tachycardia): Plan: Volume status improving. Titrate Bumex to 1 mg twice daily. Monitor fluid balance, daily weight, GFR, and electrolytes. Supplement as indicated. Continue potassium chloride 40 mEq daily. Continue low-dose amiodarone and Toprol-XL to 25 mg twice daily. Consider titration of amiodarone to 200 mg twice daily with any significant recurrence of ventricular tachycardia Consider addition of ARB versus Entresto pending blood pressure response to IV diuretic therapy. Admission and Anticipated Discharge Date Admission Date: July 31, 2021 Subjective Patient seen examined at the bedside. Weight is down 5 kg since admission. Lower extremity edema mildly improved. Denies chest discomfort or heaviness. Telemetry reveals sinus rhythm in the 80s. No recurrent ventricular tachycardia. Evening dose of metoprolol held last night due to borderline hypotension. Patient received 1 g of IV magnesium last evening and potassium supplement today. Serum magnesium and potassium now within normal limits. 2D echocardiogram reveals ejection fraction of 25-30%, moderate mitral regurgitation, mild to moderate tricuspid regurgitation with evidence of moderate pulmonary hypertension (52 mmHg). There is a trivial anterior and apical pericardial effusion. No evidence of tamponade, however, the IVC was dilated suggesting a right atrial pressure of 15 mmHg. Review of Systems Review of Systems: All systems reviewed & are unremarkable except as noted in Subjective Physical Exam Constitutional: + ill appearing and + cachectic Respiratory: normal respiratory effort; no respiratory distress and no labored breathing Auscultation: + diminished lung sounds (Bilateral) and + rales; no rhonchi and no wheezes Cardiovascular: Rate/Rhythm: regular rate and regular rhythm Heart Sounds: normal S1 and normal S2; no murmur Vessels: + JVD and radial pulses present; no carotid bruit Extremities: + edema (1+ bilateral pretibial) Gastrointestinal (Abdomen): Inspection/Auscultation: normal bowel sounds; abdomen not distended Percussion/Palpation: abdomen soft; abdomen nontender, no guarding and abdomen not rigid Neurologic: CN's II-XI intact bilaterally and moves all extremities; no focal motor deficits Results & Data ([facility]) Vital Signs (Past 12 Hours) Vital Signs Temp Pulse Pulse Resp BP BP Pulse Ox 08/02/21 12:09 36.8 C 72 18 99/65 L 97 08/02/21 07:53 36.5 C 78 18 113/72 96 08/02/21 07:11 83 08/02/21 02:43 36.6 C 79 18 125/74 97
[2021-08-02] MEDS: DICLOFENAC SOD 1% GEL 100 GM TUBE EXT SCH ×2 (12:50→21:37)
--- NOTE | 2021-08-02 14:42 | Hospitalist Progress Note ---
Date of Service August 02, 2021 Assessment & Plan (1) Acute on chronic HFrEF (heart failure with reduced ejection fraction): Plan: Presented with bilateral leg edema, exertional shortness of breath, weight gain but no chest pain and/or palpitation CXR: Diffuse airspace opacities are seen throughout both lungs and could represent pulmonary edema and/or multifocal pneumonia. Small pleural effusions. Appears to be volume overloaded, and less likely pneumonia, procalcitonin not elevated In ER given bumex 1mg IV and that was continued Has been diuresing well and getting better Continue to monitor I's and O's, daily weight, follow low sodium diet Cardiology consult, spoke to Dr Chase and recommended Bumex 1mg daily - appreciate cardiology input and recommendation Continue amiodarone We will monitor PRP and replace electrolytes as needed Clinically much better and seems that he is at his baseline We will continue PT and OT and possible discharge tomorrow (2) Ischemic cardiomyopathy with implantable cardioverter-defibrillator (ICD): Plan: Patient is a 71-year-old male with PMH severe ischemic cardiomyopathy, H/O cardiac arrest 2018, s/p ICD, CAD, HTN, HLD, GERD, hypothyroidism presented to ER with complaint BLE edema, exertional SOB, and abnormal chest x-ray. Has noncompliant with diuretics for several weeks as he felt like he urinated too much and it caused burning with urination. Had outpatient CXR on 07/29/21 that showed severe congestive change with diffuse airspace opacities and was referred to ER. Echo of the heart showed- LV moderately dilated, LV systolic function is severely reduced at 25 to 30%, RV is moderately dilated, RV systolic function is qualitatively normal, severe biatrial enlargement, aortic valve sclerosis mild without significant stenosis, mild AR, moderate MR, mild to moderate tricuspid regurgitation, dilated inferior vena cava with reduced collapsibility with stiff indicating elevated right atrial pressure of 15 mmHg, trivial anterior and apical pericardial effusion with moderate organization, no echocardiographic indications of cardiac tamponade, diastolic dysfunction grade 3 and a small bilateral pleural effusion, (3) Leg edema: Plan: Suspect BLE erythema secondary to edema and less likely cellulitis Will hold antibiotics at this time Venous duplex r/o DVT arterial duplex RLE to r/o occlusion-no arterial occlusion Advised to keep the legs elevated over 1 or 2 pillows while in bed and increase ambulation to decrease edema (4) CAD (coronary artery disease): Plan: Continue aspirin, plavix, atorvastatin, metoprolol succinate (5) HTN (hypertension): Plan: Continue metoprolol succinate (6) HLD (hyperlipidemia): Plan: Continue statin (7) Hypothyroidism: Plan: Outpatient TSH 16.5 on 07/29/21. Was instructed to increase levothyroxine from 25mcg daily to 50mcg daily x 2 weeks followed by 75mcg daily Continue levothyroxine 50mcg daily Will need outpatient TSH follow up DVT Prophylaxis Lovenox SQ Full Code as per discussion with pt Follows with Dr Cruz for routine care We will get PT and OT evaluation prior to discharge Admission and Anticipated Discharge Date Admission Date: July 31, 2021 Subjective 08/01/2021 The patient was seen and examined in telemetry unit He was admitted with acute shortness of breath secondary to acute on chronic CHF Has been getting intravenous Bumex and clinically much better Wanted to have his antibiotic to be continued for pneumonia 08/02/2021 The patient was seen and examined in medical telemetry unit He has been feeling much better and participating in physical therapy Complains of some pain at back of left shoulder which is very localized with tenderness on deep palpation Review of Systems Review of Systems: All systems reviewed and are unremarkable except as noted below Respiratory: Minimal shortness of breath at rest Physical Exam Physical Exam: Sitting at the edge of the bed with minimal shortness of breath Constitutional: + ill appearing and average body habitus Eyes: PERRL, conjunctivae normal, anicteric sclerae ENMT: external ear and nose normal, oropharynx normal Neck: trachea midline, no thyromegaly Respiratory: + respiratory distress (Minimal shortness of breath at rest) Auscultation: + diminished lung sounds, + crackles (At the bases) and + wheezes (Minimal wheezing) Cardiovascular: Rate/Rhythm: regular rate and regular rhythm; not tachycardic Heart Sounds: normal S1, normal S2 and + murmur (2/6 ESM over precordium) Extremities: + edema (1+ edema bilaterally, chronic with chronic skin changes and a few ulcers) Gastrointestinal (Abdomen): Inspection/Auscultation: normal bowel sounds; abdomen not distended Percussion/Palpation: abdomen soft; abdomen nontender Musculoskeletal: No acute arthritis in any joint Neurologic: Alert, awake and oriented x3 Results & Data Results & Data ([facility]) Vital Signs (Past 12 Hours) Vital Signs Temp Pulse Pulse Resp BP BP Pulse Ox 08/02/21 12:09 36.8 C 72 18 99/65 L 97 08/02/21 07:53 36.5 C 78 18 113/72 96 08/02/21 07:11 83 08/02/21 02:43 36.6 C 79 18 125/74 97 Laboratory Results BMP 08/02/21 05:25 Sodium 137 Potassium 3.9 Chloride 105 Carbon Dioxide 25 BUN 16 Creatinine 0.88 Glucose 96 Calcium 8.7 Medications Administered Current Inpatient Medications Acetaminophen (Acetaminophen 325 Mg Tab) 650 mg PO Q4H PRN PRN Reason: Pain or Fever Stop: 08/30/21 17:41 Last Admin: 07/31/21 21:25 Dose: 650 mg Documented by: Amiodarone HCl (Amiodarone 200 Mg Tab) 100 mg PO DAILY [facility] Stop: 08/31/21 08:59 Last Admin: 08/02/21 07:18 Dose: 100 mg Documented by: Aspirin (Aspirin 81 Mg Ectab) 81 mg PO DAILY [facility] Stop: 08/31/21 08:59 Last Admin: 08/02/21 07:18 Dose: 81 mg Documented by: Atorvastatin Calcium (Atorvastatin 40 Mg Tab) 60 mg PO DAILY [facility] Stop: 08/31/21 08:59 Last Admin: 08/02/21 07:17 Dose: 60 mg Documented by: Clopidogrel Bisulfate (Clopidogrel Bisulfate 75 Mg Tab) 75 mg PO DAILY [facility] Stop: 08/31/21 08:59 Last Admin: 08/02/21 07:17 Dose: 75 mg Documented by: Diclofenac Sodium (Diclofenac Sod 1% Gel 100 Gm Tube) 2 gm EXT BID [facility] Stop: 09/01/21 11:29 Last Admin: 08/02/21 12:50 Dose: 2 gm Documented by: Doxycycline Hyclate (Doxycycline Hyclate 100 Mg Cap) 100 mg PO BID [facility] Stop: 08/08/21 11:44 Last Admin: 08/02/21 07:20 Dose: 100 mg Documented by: Enoxaparin Sodium (Enoxaparin Inj 40 Mg/0.4 Ml Syr) 40 mg SQ QPM [facility] Stop: 08/30/21 20:59 Last Admin: 08/01/21 20:32 Dose: 40 mg Documented by: Fluticasone Propionate (Fluticasone Propionate Na Spr 16 Gm Btl) 2 sprays FITO DAILY [facility] Stop: 08/31/21 08:59 Last Admin: 08/02/21 07:27 Dose: 2 sprays Documented by: Bumetanide 1 mg/ Syringe 4 mls @ 4 mls/min IV DAILY [facility] Stop: 08/31/21 08:59 Last Admin: 08/02/21 07:20 Dose: 4 mls/min Documented by: Bumetanide 1 mg/ Syringe 4 mls @ 4 mls/min IV ONE ONE Stop: 08/02/21 17:32 Levothyroxine Sodium (Levothyroxine Sodium 50 Mcg Tablet) 50 mcg PO DAILYBB [facility] Stop: 08/31/21 06:29 Last Admin: 08/02/21 05:16 Dose: 50 mcg Documented by: Metoprolol Succinate (Metoprolol Succ 25mg Ext Rel Tab) 25 mg PO BID [facility] Stop: 08/31/21 20:59 Last Admin: 08/02/21 07:17 Dose: 25 mg Documented by: Nitroglycerin (Nitroglycerin Sl 0.4 Mg/Tab Tab) 0.4 mg SL UD PRN PRN Reason: Chest Pain Stop: 08/30/21 17:41 Polyethylene Glycol (Polyethylene (Miralax) 17 Gm Pack) 17 gm PO HS [facility] Stop: 08/31/21 20:59 Last Admin: 08/01/21 20:30 Dose: 17 gm Documented by: Potassium Chloride (Potassium Chloride Crtab 20 Meq Tabcr) 40 meq PO QAM [facility] Stop: 08/31/21 08:59 Last Admin: 08/02/21 07:18 Dose: 40 meq Documented by: Tramadol HCl (Tramadol Hcl 50 Mg Tablet) 50 mg PO BID PRN PRN Reason: Severe Pain (Scale Score 7-10) Stop: 08/30/21 17:41 Last Admin: 08/01/21 18:40 Dose: 50 mg Documented by:
[2021-08-02] MEDS ORDERED: BUMETANIDE 1 MG in SYRINGE 0 ML IV ONE (17:31)
[2021-08-02] MEDS: ENOXAPARIN INJ 40 MG/0.4 ML SYR SQ SCH (21:19)
[2021-08-02] MEDS: POLYETHYLENE (MIRALAX) 17 GM PACK PO SCH (21:19)
[2021-08-02] MEDS: traMADol HCL 50 MG TABLET PO PRN (21:27)
[2021-08-03] MEDS: LEVOTHYROXINE SODIUM 50 MCG TABLET PO SCH (06:05)
[2021-08-03 07:44] LABS: Basophils # (auto) 0.02 K/uL (0-0.2); Basophils % (auto) 0.5 %; Eosinophils # (auto) 0.09 K/uL (0-0.5); Eosinophils % (auto) 2.4 %; Hematocrit (blood only) 35.9 % (42-52); Immature Granulocytes # (auto) 0.01 K/uL (0.00-0.02); Immature Granulocytes % (auto) 0.3 %; Lymphocytes % (auto) 31.5 %; Mean Corpuscular Hemoglobin 31.3 pg (25-34); Mean Corpuscular Hgb Conc 33.4 g/dL (32-36); Mean Corpuscular Volume 93.5 fL (80-100); Mean Platelet Volume 9.6 fL (7.4-10.4); Monocytes % (auto) 15.7 %; Neutrophils # (auto) 1.89 K/uL (1.4-6.5); Neutrophils % (auto) 49.6 %; Platelet Count 335 K/uL (130-400); RDW Coefficient of Variation 22.7 % (11.5-14.5); RDW Standard Deviation 78.3 fL (36.4-46.3); Red Blood Count 3.84 M/uL (4.7-6.1); White Blood Count 3.81 K/uL (4.8-10.8)
[2021-08-03 08:02] LABS: Anisocytosis Present
[2021-08-03 08:06] LABS: BUN Creatinine Ratio 17.3 (10-20); Calcium 8.7 mg/dl (8.5-10.1); Creatinine Clr Calc Pharmacy 67.9 ml/min; Est GFR (African American) 90.2 ml/min; Est GFR (Non-African American) 77.8 ml/min; Potassium 3.7 mmol/L (3.5-5.1)
[2021-08-03] MEDS: METOPROLOL SUCC 25MG EXT REL TAB PO SCH ×2 (08:24→20:50)
[2021-08-03] MEDS: DOXYCYCLINE HYCLATE 100 MG CAP PO SCH ×2 (08:24→20:49)
[2021-08-03] MEDS: POTASSIUM CHLORIDE CRTAB 20 MEQ TABCR PO SCH (08:24)
[2021-08-03] MEDS: ASPIRIN 81 MG ECTAB PO SCH (08:24)
[2021-08-03] MEDS: AMIODARONE 200 MG TAB PO SCH (08:24)
[2021-08-03] MEDS: DICLOFENAC SOD 1% GEL 100 GM TUBE EXT SCH ×2 (08:25→20:51)
[2021-08-03] MEDS: BUMETANIDE 1 MG in SYRINGE 0 ML IV SCH ×2 (08:25→20:46)
[2021-08-03] MEDS: CLOPIDOGREL BISULFATE 75 MG TAB PO SCH (08:25)
[2021-08-03] MEDS: ATORVASTATIN 40 MG TAB PO SCH (08:25)
[2021-08-03] MEDS: FLUTICASONE PROPIONATE NA SPR 16 GM BTL NAE SCH (08:26)
[2021-08-03] MEDS ORDERED: POTASSIUM CHLORIDE CRTAB 20 MEQ TABCR PO ONE (11:09)
--- NOTE | 2021-08-03 11:17 | Cardiology Progress Note ---
Date of Service August 03, 2021 Assessment & Plan (1) Acute on chronic HFrEF (heart failure with reduced ejection fraction): (2) Ischemic cardiomyopathy with implantable cardioverter-defibrillator (ICD): (3) NSVT (nonsustained ventricular tachycardia): Plan: Improving evidence of acute decompensated right greater than left biventricular congestive heart failure. Continue IV Bumex, twice daily. Additional oral potassium supplementation ordered, along with resumption of spironolactone starting at 25 mg once per day. Increase metoprolol succinate to 37.5 mg twice per day. Refer for a PA and lateral chest x-ray. If no significant improvement noted wou ld proceed with a noncontrast CT scan of the chest as discussed. Continue low-dose amiodarone for now. Continue to monitor fluid balance, daily weights, GFR, and electrolytes. Consider the addition of an ARB versus Entresto down the road. Admission and Anticipated Discharge Date Admission Date: July 31, 2021 Supervising Physician Co-Signing Physician Notes Patient seen and examined at bedside. Edema improving. Denies chest pain or shortness of breath. Tolerating diet and medications. Renal function remained stable. Remains in sinus rhythm on telemetry. PE: VSS. Gen: NAD, AAO x3. Heart: Regular, normal S1-S2. Lungs: Diminished br eath sounds at the bases otherwise clear bilaterally. Extremities: 1+ bilateral pedal, and pretibial edema. A/P: Agree with above PA-C history, physical exam, assessment and plan. Continue Bumex 1 mg twice daily today. Follow daily weight, GFR, electrolytes. Reassess volume status in a.m. Consider addition of ARB or Entresto pending clinical course. Subjective Patient seen and examined. Chart, medications, and telemetry reviewed. Telemetry reveals sinus rhythm in the 70s and 80s. No further episodes of VT noted. I's/O's -2801 mL overall, down 841 mL's over the last 24 hours Weight on presentation was 84.3 kg, down to 77.6 kg. Notes improvement but not resolution no abdominal and lower extremity edema. Dyspnea has improved. No chest pain, palpitations, dizziness, near syncope, syncope, fevers, or chills. Physical Exam Physical Exam: General: The patient's overall general appearance has significantly changed from when I saw him last in June, specifically on June 18, 2021. He has lost a significant amount of weight including muscle mass. He appears cachectic. HENT: Normocephalic. Atraumatic Eyes: PER. Conjunctiva pink, sclera pale. Neck: No carotid bruits. No JVD. + HJR. Heart: Regular at 80 bpm. Soft systolic murmur heard throughout the precordium. No diastolic murmur. No rub. Lungs: Diminished. Decrease. No abnormal breath sounds auscultated. Abdomen: +BS. Soft. Nontender. No organomegaly. Extremities: 1+ hard indurated edema with minimal erythema, without overt cellulitis. No clubbing. No cyanosis. Pulses: radial=2/4, posterior tibial=0/4. Results & Data ([facility]) Vital Signs (Past 12 Hours) Vital Signs Temp Pulse Pulse Pulse Resp BP BP 08/03/21 08:22 85 122/64 08/03/21 07:20 36.8 C 79 16 118/74 08/03/21 07:00 77 08/03/21 03:14 77 20 122/77 08/02/21 23:16 77 18 127/66 Pulse Ox 08/03/21 08:22 08/03/21 07:20 99 08/03/21 07:00 08/03/21 03:14 92 08/02/21 23:16 95 Laboratory Results Laboratory Results - last 24 hr 08/03/21 08/03/21 07:17 07:17 WBC 3.81 L RBC 3.84 L Hgb 12.0 L Hct 35.9 L MCV 93.5 MCH 31.3 MCHC 33.4 RDW Std Deviation 78.3 H RDW Coeff of Joao 22.7 H Plt Count 335 MPV 9.6 Immature Gran % (Auto) 0.3 Neut % (Auto) 49.6 Lymph % (Auto) 31.5 Ida % (Auto) 15.7 Eos % (Auto) 2.4 Baso % (Auto) 0.5 Neut # (Auto) 1.89 Lymph # (Auto) 1.20 Ida # (Auto) 0.60 H Eos # (Auto) 0.09 Baso # (Auto) 0.02 Immature Gran # (Auto) 0.01 Anisocytosis Present Sodium 138 Potassium 3.7 Chloride 103 Carbon Dioxide 29 Anion Gap 6 BUN 17 Creatinine 0.98 Est Cr Clr Drug Dosing 67.9 Est GFR ( Amer) 90.2 Est GFR (Non-Af Amer) 77.8 BUN/Creatinine Ratio 17.3 Glucose 80 Calcium 8.7
[2021-08-03] MEDS ORDERED: METOPROLOL SUCC 25MG EXT REL TAB PO SCH (12:00)
--- NOTE | 2021-08-03 12:05 | XRay Report ---
XR chest 2V PA/lateral CLINICAL HISTORY: sob. ? CHF versus other. On amiodarone COMPARISON STUDY: Chest radiograph July 31, 2021. FINDINGS: Dual lead left subclavian pacer/AICD is in place. Moderate cardiomegaly is noted. There is no pneumothorax. There are small bilateral pleural effusions. Interstitial thickening and bilateral o pacities, greater within the left lung, persist. IMPRESSION: 1. Persistent interstitial thickening and bilateral opacities. The findings favor pulmonary edema or pneumonia. Amiodarone toxicity is within the differential although statistically less likely. 2. Small bilateral pleural effusions. ACT 112: Negative or not required by law. Electronically signed by: Rick Dunn M.D. 08/03/2021 12:04 PM
[2021-08-03] MEDS: SPIRONOLACTONE 25 MG TAB PO SCH (12:25)
--- NOTE | 2021-08-03 16:59 | Hospitalist Progress Note ---
Date of Service August 03, 2021 Assessment & Plan (1) Acute on chronic HFrEF (heart failure with reduced ejection fraction): Plan: Presented with bilateral leg edema, exertional shortness of breath, weight gain but no chest pain and/or palpitation CXR: Diffuse airspace opacities are seen throughout both lungs and could represent pulmonary edema and/or multifocal pneumonia. Small pleural effusions. Appears to be volume overloaded, and less likely pneumonia, procalcitonin not elevated In ER given bumex 1mg IV and that was continued Has been diuresing well and getting better Continue to monitor I's and O's, daily weight, follow low sodium diet Cardiology consult, spoke to Dr Chase and recommended Bumex 1mg daily - appreciate cardiology input and recommendation Continue amiodarone We will monitor PRP and replace electrolytes as needed Clinically much better and seems that he is at his baseline Cardiology wanted to have another night just in the hospital and possible CT chest without contrast (2) Ischemic cardiomyopathy with implantable cardioverter-defibrillator (ICD): Plan: Patient is a 71-year-old male with PMH severe ischemic cardiomyopathy, H/O cardiac arrest 2018, s/p ICD, CAD, HTN, HLD, GERD, hypothyroidism presented to ER with complaint BLE edema, exertional SOB, and abnormal chest x-ray. Has noncompliant with diuretics for several weeks as he felt like he urinated too much and it caused burning with urination. Had outpatient CXR on 07/29/21 that showed severe congestive change with diffuse airspace opacities and was referred to ER. Echo of the heart showed- LV moderately dilated, LV systolic function is severely reduced at 25 to 30%, RV is moderately dilated, RV systolic function is qualitatively normal, severe biatrial enlargement, aortic valve sclerosis mild without significant stenosis, mild AR, moderate MR, mild to moderate tricuspid regurgitation, dilated inferior vena cava with reduced collapsibility with stiff indicating elevated right atrial pressure of 15 mmHg, trivial anterior and apical pericardial effusion with moderate organization, no echocardiographic indications of cardiac tamponade, diastolic dysfunction grade 3 and a small bilateral pleural effusion, (3) Leg edema: Plan: Suspect BLE erythema secondary to edema and less likely cellulitis Will hold antibiotics at this time Venous duplex r/o DVT arterial duplex RLE to r/o occlusion-no arterial occlusion Advised to keep the legs elevated over 1 or 2 pillows while in bed and increase ambulation to decrease edema (4) CAD (coronary artery disease): Plan: Continue aspirin, plavix, atorvastatin, metoprolol succinate (5) HTN (hypertension): Plan: Continue metoprolol succinate (6) HLD (hyperlipidemia): Plan: Continue statin (7) Hypothyroidism: Plan: Outpatient TSH 16.5 on 07/29/21. Was instructed to increase levothyroxine from 25mcg daily to 50mcg daily x 2 weeks followed by 75mcg daily Continue levothyroxine 50mcg daily Will need outpatient TSH follow up DVT Prophylaxis Lovenox SQ Full Code as per discussion with pt Follows with Dr Cruz for routine care We will get PT and OT evaluation prior to discharge Seems to be at her baseline Admission and Anticipated Discharge Date Admission Date: July 31, 2021 Subjective 08/01/2021 The patient was seen and examined in telemetry unit He was admitted with acute shortness of breath secondary to acute on chronic CHF Has been getting intravenous Bumex and clinically much better Wanted to have his antibiotic to be continued for pneumonia 08/02/2021 The patient was seen and examined in medical telemetry unit He has been feeling much better and participating in physical therapy Complains of some pain at back of left shoulder which is very localized with tenderness on deep palpation 08/03/2021 The patient was seen and examined in medical telemetry unit He has been feeling a lot better He has been ambulating in the room without any difficulties and has been getting physical therapy Was advised with the beauty operator apprentice to stay for another night Review of Systems Review of Systems: All systems reviewed and are unremarkable except as noted below Physical Exam Physical Exam: Sitting at the edge of the bed with minimal shortness of breath Constitutional: + ill appearing and average body habitus Eyes: PERRL, conjunctivae normal, anicteric sclerae ENMT: external ear and nose normal, oropharynx normal Neck: trachea midline, no thyromegaly Respiratory: + respiratory distress (Minimal shortness of breath at rest) Auscultation: + diminished lung sounds, + crackles (At the bases) and + wheezes (Minimal wheezing) Cardiovascular: Rate/Rhythm: regular rate and regular rhythm; not tachycardic Heart Sounds: normal S1, normal S2 and + murmur (2/6 ESM over precordium) Extremities: + edema (1+ edema bilaterally, chronic with chronic skin changes and a few ulcers) Gastrointestinal (Abdomen): Inspection/Auscultation: normal bowel sounds; abdomen not distended Percussion/Palpation: abdomen soft; abdomen nontender Musculoskeletal: No acute arthritis in any joint Neurologic: Alert, awake and oriented x3 Results & Data Results & Data ([facility]) Vital Signs (Past 12 Hours) Vital Signs Temp Pulse Pulse Pulse Resp BP BP 08/03/21 15:56 36.4 C 72 16 105/52 L 08/03/21 14:11 71 08/03/21 11:00 36.5 C 76 16 112/78 08/03/21 08:22 85 122/64 08/03/21 07:20 36.8 C 79 16 118/74 08/03/21 07:00 77 Pulse Ox 08/03/21 15:56 96 08/03/21 14:11 08/03/21 11:00 100 08/03/21 08:22 08/03/21 07:20 99 08/03/21 07:00 Laboratory Results Short CBC 08/03/21 Range/Units 07:17 WBC 3.81 L (4.8-10.8) K/uL Hgb 12.0 L (14.0-18.0) g/dL Hct 35.9 L (42-52) % Plt Count 335 (130-400) K/uL BMP 08/03/21 07:17 Sodium 138 Potassium 3.7 Chloride 103 Carbon Dioxide 29 BUN 17 Creatinine 0.98 Glucose 80 Calcium 8.7 Medications Administered Current Inpatient Medications Acetaminophen (Acetaminophen 325 Mg Tab) 650 mg PO Q4H PRN PRN Reason: Pain or Fever Stop: 08/30/21 17:41 Last Admin: 07/31/21 21:25 Dose: 650 mg Documented by: Amiodarone HCl (Amiodarone 200 Mg Tab) 100 mg PO DAILY [facility] Stop: 08/31/21 08:59 Last Admin: 08/03/21 08:24 Dose: 100 mg Documented by: Aspirin (Aspirin 81 Mg Ectab) 81 mg PO DAILY [facility] Stop: 08/31/21 08:59 Last Admin: 08/03/21 08:24 Dose: 81 mg Documented by: Atorvastatin Calcium (Atorvastatin 40 Mg Tab) 60 mg PO DAILY [facility] Stop: 08/31/21 08:59 Last Admin: 08/03/21 08:25 Dose: 60 mg Documented by: Clopidogrel Bisulfate (Clopidogrel Bisulfate 75 Mg Tab) 75 mg PO DAILY [facility] Stop: 08/31/21 08:59 Last Admin: 08/03/21 08:25 Dose: 75 mg Documented by: Diclofenac Sodium (Diclofenac Sod 1% Gel 100 Gm Tube) 2 gm EXT BID [facility] Stop: 09/01/21 11:29 Last Admin: 08/03/21 08:25 Dose: 2 gm Documented by: Doxycycline Hyclate (Doxycycline Hyclate 100 Mg Cap) 100 mg PO BID [facility] Stop: 08/08/21 11:44 Last Admin: 08/03/21 08:24 Dose: 100 mg Documented by: Enoxaparin Sodium (Enoxaparin Inj 40 Mg/0.4 Ml Syr) 40 mg SQ QPM [facility] Stop: 08/30/21 20:59 Last Admin: 08/02/21 21:19 Dose: 40 mg Documented by: Fluticasone Propionate (Fluticasone Propionate Na Spr 16 Gm Btl) 2 sprays FITO DAILY [facility] Stop: 08/31/21 08:59 Last Admin: 08/03/21 08:26 Dose: 2 sprays Documented by: Bumetanide 1 mg/ Syringe 4 mls @ 4 mls/min IV BID [facility] Stop: 09/02/21 20:59 Levothyroxine Sodium (Levothyroxine Sodium 50 Mcg Tablet) 50 mcg PO DAILYBB [facility] Stop: 08/31/21 06:29 Last Admin: 08/03/21 06:05 Dose: 50 mcg Documented by: Metoprolol Succinate (Metoprolol Succ 25mg Ext Rel Tab) 37.5 mg PO BID [facility] Stop: 09/02/21 20:59 Nitroglycerin (Nitroglycerin Sl 0.4 Mg/Tab Tab) 0.4 mg SL UD PRN PRN Reason: Chest Pain Stop: 08/30/21 17:41 Polyethylene Glycol (Polyethylene (Miralax) 17 Gm Pack) 17 gm PO HS [facility] Stop: 08/31/21 20:59 Last Admin: 08/02/21 21:19 Dose: 17 gm Documented by: Potassium Chloride (Potassium Chloride Crtab 20 Meq Tabcr) 40 meq PO QAM [facility] Stop: 08/31/21 08:59 Last Admin: 08/03/21 08:24 Dose: 40 meq Documented by: Spironolactone (Spironolactone 25 Mg Tab) [address] [facility] Stop: 09/02/21 11:14 Last Admin: 08/03/21 12:25 Dose: 25 mg Documented by: Tramadol HCl (Tramadol Hcl 50 Mg Tablet) 50 mg PO BID PRN PRN Reason: Severe Pain (Scale Score 7-10) Stop: 08/30/21 17:41 Last Admin: 08/02/21 21:27 Dose: 50 mg Documented by:
[2021-08-03] MEDS: ENOXAPARIN INJ 40 MG/0.4 ML SYR SQ SCH (20:49)
[2021-08-03] MEDS: POLYETHYLENE (MIRALAX) 17 GM PACK PO SCH (20:51)
[2021-08-03] MEDS: traMADol HCL 50 MG TABLET PO PRN (21:14)
[2021-08-04] MEDS: LEVOTHYROXINE SODIUM 50 MCG TABLET PO SCH (06:11)
[2021-08-04] MEDS: BUMETANIDE 1 MG in SYRINGE 0 ML IV SCH ×2 (08:30→20:12)
[2021-08-04] MEDS: ASPIRIN 81 MG ECTAB PO SCH (08:30)
[2021-08-04] MEDS: METOPROLOL SUCC 25MG EXT REL TAB PO SCH (08:30)
[2021-08-04] MEDS: DOXYCYCLINE HYCLATE 100 MG CAP PO SCH ×2 (08:30→20:14)
[2021-08-04] MEDS: ATORVASTATIN 40 MG TAB PO SCH (08:31)
[2021-08-04] MEDS: SPIRONOLACTONE 25 MG TAB PO SCH ×2 (08:31→20:14)
[2021-08-04] MEDS: CLOPIDOGREL BISULFATE 75 MG TAB PO SCH (08:32)
[2021-08-04] MEDS: AMIODARONE 200 MG TAB PO SCH (08:33)
[2021-08-04] MEDS: POTASSIUM CHLORIDE CRTAB 20 MEQ TABCR PO SCH (08:33)
[2021-08-04] MEDS: DICLOFENAC SOD 1% GEL 100 GM TUBE EXT SCH ×2 (08:34→20:13)
[2021-08-04] MEDS: FLUTICASONE PROPIONATE NA SPR 16 GM BTL NAE SCH (08:35)
[2021-08-04 08:37] LABS: BUN Creatinine Ratio 21.8 (10-20); Calcium 8.6 mg/dl (8.5-10.1); Creatinine Clr Calc Pharmacy 76.4 ml/min; Est GFR (African American) 101.3 ml/min; Est GFR (Non-African American) 87.4 ml/min; Magnesium 1.7 mg/dl (1.7-2.4); Potassium 3.8 mmol/L (3.5-5.1)
--- NOTE | 2021-08-04 11:36 | Cardiology Progress Note ---
Date of Service August 04, 2021 Assessment & Plan (1) Acute on chronic HFrEF (heart failure with reduced ejection fraction): (2) Ischemic cardiomyopathy with implantable cardioverter-defibrillator (ICD): (3) NSVT (nonsustained ventricular tachycardia): Plan: Slow gradually improving evidence of acute decompensated right greater than left biventricular congestive heart failure. Continue IV Bumex, twice daily. Increase spironolactone to 50 mg/day. Increase metoprolol succinate to 50 mg twice per day. Hold amiodarone Refer for high resolution chest CT, RE: evaluation of interstitial lung disease. concern for amiodarone toxicity. Continue to monitor fluid balance, daily weights, GFR, and electrolytes. Consider the addition of an ARB versus Entresto down the road if blood pressure permits. Admission and Anticipated Discharge Date Admission Date: July 31, 2021 Supervising Physician Co-Signing Physician Notes Patient seen and examined at bedside. Edema improving. Denies chest pain or shortness of breath. Tolerating diet and medications. Renal function remained stable. Remains in sinus rhythm on telemetry. PE: VSS. Gen: NAD, AAO x3. Heart: Regular, normal S1-S2. Lungs: Diminished breath sounds at the bases otherwise clear bilaterally. Extremities: 1+ bilateral pedal, and pretibial edema. A/P: Agree with above PA-C history, physical exam, assessment and plan. Continue Bumex 1 mg twice daily today. Follow daily weight, GFR, electrolytes. Reassess volume status in a.m. no recurrent ventricular dysrhythmias with questionable interstitial lung process on x-ray despite diuresis. Recommend high-resolution CT for further evaluation. Amiodarone will be placed on hold. Titrate metoprolol to 50 mg twice daily. Consider addition of ARB or Entresto pending clinical course. Subjective Patient seen and examined. Chart, medications, and telemetry reviewed.Ecchymosis noted on right eyelid. Notes thrashing around overnight in bed. Feeling okay. Stable dyspnea. Edema unchanged compared to yesterday. No chest pain. No palpitations. No dizziness. No near syncope. No subjective fevers or chills. Chest x-ray on August 03, 2021 reveals interstitial thickening and left greater than right bilateral opacities with small pleural effusions, without significant improvement despite diuresis Telemetry reveals sinus rhythm in the 70s and 80s. No episodes of VT noted over the last 24 hours. I's/O's -3,661 mL's overall, down 860 mL's over the last 24 hours Weight on presentation was 84.3 kg, down to 75.2 kg today. Physical Exam Physical Exam: General: Cachectic. HENT: Normocephalic. Atraumatic Eyes: PER. Conjunctiva pink, sclera pale. Neck: No carotid bruits. No JVD. + HJR. Heart: Regular at 74 bpm. Soft systolic murmur heard throughout the precordium. No diastolic murmur. No rub. Lungs: Diminished. Decrease. No abnormal breath sounds auscultated. Abdomen: +BS. Soft. Nontender. No organomegaly. Extremities: 1+ edema with minimal erythema, without overt cellulitis. No clubbing. No cyanosis. Pulses: radial=2/4, posterior tibial=0/4. Results & Data ([facility]) Vital Signs (Past 12 Hours) Vital Signs Temp Pulse Resp BP Pulse Ox 08/04/21 08:03 36.5 C 70 18 114/64 98 08/04/21 03:00 70 20 109/64 94
[2021-08-04] MEDS: traMADol HCL 50 MG TABLET PO PRN (12:08)
--- NOTE | 2021-08-04 18:31 | Hospitalist Progress Note ---
Date of Service August 04, 2021 Assessment & Plan (1) Acute on chronic HFrEF (heart failure with reduced ejection fraction): Plan: Presented with bilateral leg edema, exertional shortness of breath, weight gain but no chest pain and/or palpitation CXR: Diffuse airspace opacities are seen throughout both lungs and could represent pulmonary edema and/or multifocal pneumonia. Small pleural effusions. Appears to be volume overloaded, and less likely pneumonia, procalcitonin not elevated In ER given bumex 1mg IV and that was continued Has been diuresing well and getting better Continue to monitor I's and O's, daily weight, follow low sodium diet Cardiology consult, spoke to Dr Chase and recommended Bumex 1mg daily - appreciate cardiology input and recommendation Continue amiodarone We will monitor PRP and replace electrolytes as needed Clinically much better and seems that he is at his baseline Cardiology wanted to have another night just in the hospital and possible CT chest without contrast Awaiting CT without contrast Clinically much better and will continue current medications (2) Ischemic cardiomyopathy with implantable cardioverter-defibrillator (ICD): Plan: Patient is a 71-year-old male with PMH severe ischemic cardiomyopathy, H/O cardiac arrest 2018, s/p ICD, CAD, HTN, HLD, GERD, hypothyroidism presented to ER with complaint BLE edema, exertional SOB, and abnormal chest x-ray. Has noncompliant with diuretics for several weeks as he felt like he urinated too much and it caused burning with urination. Had outpatient CXR on 07/29/21 that showed severe congestive change with diffuse airspace opacities and was referred to ER. Echo of the heart showed- LV moderately dilated, LV systolic function is severely reduced at 25 to 30%, RV is moderately dilated, RV systolic function is qualitatively normal, severe biatrial enlargement, aortic valve sclerosis mild without significant stenosis, mild AR, moderate MR, mild to moderate tricuspid regurgitation, dilated inferior vena cava with reduced collapsibility with stiff indicating elevated right atrial pressure of 15 mmHg, trivial anterior and apical pericardial effusion with moderate organization, no echocardiographic indications of cardiac tamponade, diastolic dysfunction grade 3 and a small bilateral pleural effusion, (3) Leg edema: Plan: Suspect BLE erythema secondary to edema and less likely cellulitis Will hold antibiotics at this time Venous duplex r/o DVT arterial duplex RLE to r/o occlusion-no arterial occlusion Advised to keep the legs elevated over 1 or 2 pillows while in bed and increase ambulation to decrease edema Has dry gangrenous type of wounds over toes and remain stable (4) CAD (coronary artery disease): Plan: Continue aspirin, plavix, atorvastatin, metoprolol succinate (5) HTN (hypertension): Plan: Continue metoprolol succinate (6) HLD (hyperlipidemia): Plan: Continue statin (7) Hypothyroidism: Plan: Outpatient TSH 16.5 on 07/29/21. Was instructed to increase levothyroxine from 25mcg daily to 50mcg daily x 2 weeks followed by 75mcg daily Continue levothyroxine 50mcg daily Will need outpatient TSH follow up DVT Prophylaxis Lovenox SQ Full Code as per discussion with pt Follows with Dr Cruz for routine care We will get PT and OT evaluation prior to discharge Seems to be at her baseline Admission and Anticipated Discharge Date Admission Date: July 31, 2021 Subjective 08/01/2021 The patient was seen and examined in telemetry unit He was admitted with acute shortness of breath secondary to acute on chronic CHF Has been getting intravenous Bumex and clinically much better Wanted to have his antibiotic to be continued for pneumonia 08/02/2021 The patient was seen and examined in medical telemetry unit He has been feeling much better and participating in physical therapy Complains of some pain at back of left shoulder which is very localized with tenderness on deep palpation 08/03/2021 The patient was seen and examined in medical telemetry unit He has been feeling a lot better He has been ambulating in the room without any difficulties and has been getting physical therapy Was advised with the utility manager to stay for another night 08/04/2021 The patient was seen and examined in medical telemetry unit He has been feeling a lot better Awaiting CT of the chest Review of Systems Review of Systems: All systems reviewed and are unremarkable except as noted below Respiratory: Minimal shortness of breath at rest Physical Exam Physical Exam: Sitting at the edge of the bed with minimal shortness of breath Constitutional: + ill appearing and average body habitus Eyes: PERRL, conjunctivae normal, anicteric sclerae ENMT: external ear and nose normal, oropharynx normal Neck: trachea midline, no thyromegaly Respiratory: + respiratory distress (Minimal shortness of breath at rest) Auscultation: + diminished lung sounds, + crackles (At the bases) and + wheezes (Minimal wheezing) Cardiovascular: Rate/Rhythm: regular rate and regular rhythm; not tachycardic Heart Sounds: normal S1, normal S2 and + murmur (2/6 ESM over precordium) Extremities: + edema (1+ edema bilaterally, chronic with chronic skin changes and a few ulcers) Gastrointestinal (Abdomen): Inspection/Auscultation: normal bowel sounds; abdomen not distended Percussion/Palpation: abdomen soft; abdomen nontender Musculoskeletal: No acute arthritis in any joint Neurologic: Alert, awake and oriented x3. No focal sensory or no motor deficit appreciated Results & Data Results & Data ([facility]) Vital Signs (Past 12 Hours) Vital Signs Temp Pulse Resp BP BP Pulse Ox 08/04/21 15:00 36.7 C 77 18 86/54 L 90 08/04/21 08:03 36.5 C 70 18 114/64 98 Laboratory Results [facility] 08/04/21 07:39 Sodium 137 Potassium 3.8 Chloride 102 Carbon Dioxide 28 BUN 19 Creatinine 0.87 Glucose 75 Calcium 8.6 Medications Administered Current Inpatient Medications Acetaminophen (Acetaminophen 325 Mg Tab) 650 mg PO Q4H PRN PRN Reason: Pain or Fever Stop: 08/30/21 17:41 Last Admin: 07/31/21 21:25 Dose: 650 mg Documented by: Aspirin (Aspirin 81 Mg Ectab) 81 mg PO DAILY [facility] Stop: 08/31/21 08:59 Last Admin: 08/04/21 08:30 Dose: 81 mg Documented by: Atorvastatin Calcium (Atorvastatin 40 Mg Tab) 60 mg PO DAILY [facility] Stop: 08/31/21 08:59 Last Admin: 08/04/21 08:31 Dose: 60 mg Documented by: Clopidogrel Bisulfate (Clopidogrel Bisulfate 75 Mg Tab) 75 mg PO DAILY [facility] Stop: 08/31/21 08:59 Last Admin: 08/04/21 08:32 Dose: 75 mg Documented by: Diclofenac Sodium (Diclofenac Sod 1% Gel 100 Gm Tube) 2 gm EXT BID [facility] Stop: 09/01/21 11:29 Last Admin: 08/04/21 08:34 Dose: 2 gm Documented by: Doxycycline Hyclate (Doxycycline Hyclate 100 Mg Cap) 100 mg PO BID [facility] Stop: 08/08/21 11:44 Last Admin: 08/04/21 08:30 Dose: 100 mg Documented by: Enoxaparin Sodium (Enoxaparin Inj 40 Mg/0.4 Ml Syr) 40 mg SQ QPM [facility] Stop: 08/30/21 20:59 Last Admin: 08/03/21 20:49 Dose: 40 mg Documented by: Fluticasone Propionate (Fluticasone Propionate Na Spr 16 Gm Btl) 2 sprays FITO DAILY [facility] Stop: 08/31/21 08:59 Last Admin: 08/04/21 08:35 Dose: 2 sprays Documented by: Bumetanide 1 mg/ Syringe 4 mls @ 4 mls/min IV BID [facility] Stop: 09/02/21 20:59 Last Admin: 08/04/21 08:30 Dose: 4 mls/min Documented by: Levothyroxine Sodium (Levothyroxine Sodium 50 Mcg Tablet) 50 mcg PO DAILYBB [facility] Stop: 08/31/21 06:29 Last Admin: 08/04/21 06:11 Dose: 50 mcg Documented by: Metoprolol Succinate (Metoprolol Succ 50mg Ext Rel Tab) 50 mg PO BID [facility] Stop: 09/03/21 20:59 Nitroglycerin (Nitroglycerin Sl 0.4 Mg/Tab Tab) 0.4 mg SL UD PRN PRN Reason: Chest Pain Stop: 08/30/21 17:41 Polyethylene Glycol (Polyethylene (Miralax) 17 Gm Pack) 17 gm PO HS [facility] Stop: 08/31/21 20:59 Last Admin: 08/03/21 20:51 Dose: 17 gm Documented by: Potassium Chloride (Potassium Chloride Crtab 20 Meq Tabcr) 40 meq PO QAM [facility] Stop: 08/31/21 08:59 Last Admin: 08/04/21 08:33 Dose: 40 meq Documented by: Spironolactone (Spironolactone 25 Mg Tab) 25 mg PO BID [facility] Stop: 09/03/21 20:59 Tramadol HCl (Tramadol Hcl 50 Mg Tablet) 50 mg PO BID PRN PRN Reason: Severe Pain (Scale Score 7-10) Stop: 08/30/21 17:41 Last Admin: 08/04/21 12:08 Dose: 50 mg Documented by:
[2021-08-04] MEDS: POLYETHYLENE (MIRALAX) 17 GM PACK PO SCH (20:13)
[2021-08-04] MEDS: ENOXAPARIN INJ 40 MG/0.4 ML SYR SQ SCH (20:13)
[2021-08-04] MEDS: METOPROLOL SUCC 50MG EXT REL TAB PO SCH (20:14)
[2021-08-05] MEDS: traMADol HCL 50 MG TABLET PO PRN (01:10)
[2021-08-05] MEDS: LEVOTHYROXINE SODIUM 50 MCG TABLET PO SCH (06:16)
[2021-08-05 07:29] LABS: BUN Creatinine Ratio 24.7 (10-20); Calcium 8.7 mg/dl (8.5-10.1); Creatinine Clr Calc Pharmacy 71.5 ml/min; Est GFR (African American) 96.1 ml/min; Est GFR (Non-African American) 82.9 ml/min; Magnesium 1.6 mg/dl (1.7-2.4); Potassium 3.8 mmol/L (3.5-5.1)
[2021-08-05] MEDS: METOPROLOL SUCC 50MG EXT REL TAB PO SCH ×2 (08:28→22:19)
[2021-08-05] MEDS: SPIRONOLACTONE 25 MG TAB PO SCH ×2 (08:28→22:19)
[2021-08-05] MEDS: DOXYCYCLINE HYCLATE 100 MG CAP PO SCH ×2 (08:29→22:18)
[2021-08-05] MEDS: ATORVASTATIN 40 MG TAB PO SCH (08:29)
[2021-08-05] MEDS: ASPIRIN 81 MG ECTAB PO SCH (08:29)
[2021-08-05] MEDS: POTASSIUM CHLORIDE CRTAB 20 MEQ TABCR PO SCH (08:30)
[2021-08-05] MEDS: FLUTICASONE PROPIONATE NA SPR 16 GM BTL NAE SCH (08:30)
[2021-08-05] MEDS: DICLOFENAC SOD 1% GEL 100 GM TUBE EXT SCH ×2 (08:31→22:16)
[2021-08-05] MEDS: BUMETANIDE 1 MG in SYRINGE 0 ML IV SCH ×2 (08:31→22:14)
[2021-08-05] MEDS: CLOPIDOGREL BISULFATE 75 MG TAB PO SCH (08:32)
--- NOTE | 2021-08-05 11:18 | Cardiology Progress Note ---
Date of Service August 05, 2021 Assessment & Plan (1) Acute on chronic HFrEF (heart failure with reduced ejection fraction): (2) Ischemic cardiomyopathy with implantable cardioverter-defibrillator (ICD): (3) NSVT (nonsustained ventricular tachycardia): Plan: Slow gradually improving evidence of acute decompensated right greater than left biventricular congestive heart failure. Continue IV Bumex through today, likely switching to oral torsemide in the AM of 08/06/2021 Await high resolution chest CT, RE: evaluation of interstitial lung disease. concern for amiodarone toxicity. Amiodarone notably held/stopped on 08/04/2021. Replace magnesium. Continue to monitor fluid balance, daily weights, GFR, and electrolytes. No ARB/Entresto at this point; reconsider down the road. Admission and Anticipated Discharge Date Admission Date: July 31, 2021 Supervising Physician Co-Signing Physician Notes Patient seen and examined at bedside. Edema improving. Denies chest pain or shortness of breath. Tolerating diet and medications. Renal function remained stable. Remains in sinus rhythm on telemetry. High-resolution CT scheduled today. Amiodarone on hold. Toprol-XL titrated to 50 mg twice daily yesterday. Telemetry reveals sinus rhythm in the 70s. PE: VSS. Gen: NAD, AAO x3. Heart: Regular, normal S1-S2. Lungs: Diminished breath sounds at the bases otherwise clear bilaterally. Extremities: 1+ bilateral pedal, and pretibial edema. A/P: Agree with above PA-C history, physical exam, assessment and plan. Continue Bumex 1 mg twice daily today. Follow daily weight, GFR, electrolytes. High-resolution CT chest scheduled today. Amiodarone will remain on hold. Continue metoprolol to 50 mg twice daily. Monitor telemetry. Consider addition of ARB or Entresto pending clinical course. Subjective Patient seen and examined. Chart, medications, and telemetry reviewed.Feeling better, stronger today. Notes now being able to put on his own socks. Dyspnea has improved as has the fluid retention. No chest pain. No palpitations. No dizziness/lightheadedness with positional change. No subjective fevers or chills. Full ROS: Rhinorrhea. Musculoskeletal left posterior lateral neck/LUE discomfort. Otherwise, complete review of systems is negative or noncontributory. High resolution CT of the chest ordered on 08/04/2021 (not yet completed). Continuous telemetry monitoring reveals sinus rhythm in the 70s. No episodes of VT noted over the last 24 hours. I's/O's -4,966 mL's overall, down 1,305 mL's over the last 24 hours Weight on presentation was 84.3 kg, down to 74.5 kg today. Physical Exam Physical Exam: General: Cachectic. HENT: Normocephalic. Atraumatic Eyes: PER. Conjunctiva pink, sclera pale. Neck: No carotid bruits. No JVD. + HJR. Heart: Regular at 70 bpm. Soft systolic murmur heard throughout the precordium. No diastolic murmur. No rub. Lungs: Diminished. Decrease. No abnormal breath sounds auscultated. Abdomen: +BS. Soft. Nontender. No organomegaly. Extremities: Trace to 1+ edema edema. + Mild erythema. No overt cellulitis. No clubbing. No cyanosis. Pulses: radial=2/4, posterior tibial=0/4. Results & Data ([facility]) Vital Signs (Past 12 Hours) Vital Signs Temp Pulse Pulse Resp BP BP Pulse Ox 08/05/21 07:32 36.6 C 68 18 101/70 93 08/05/21 07:13 70 08/05/21 03:00 36.5 C 64 20 111/48 L 94 Laboratory Results Laboratory Results - last 24 hr 08/04/21 08/05/21 11:55 06:29 Sodium 139 Potassium 3.8 Chloride 104 Carbon Dioxide 27 Anion Gap 8 BUN 23 Creatinine 0.93 Est Cr Clr Drug Dosing 71.5 Est GFR ( Amer) 96.1 Est GFR (Non-Af Amer) 82.9 BUN/Creatinine Ratio 24.7 H Glucose 75 Calcium 8.7 Magnesium 1.6 L Prostate Specific Ag 2.131
[2021-08-05] MEDS ORDERED: MAGNESIUM SULFATE / D5W 1 GM/100 ML BAG IV ONE (11:45)
--- NOTE | 2021-08-05 15:24 | CT Scan Report ---
CT chest diagnostic wo con CT DOSE: 283.87 mGy.cm HISTORY: Shortness of breath. Abnormal CXR. ? Amio toxicity TECHNIQUE: Multiaxial CT images of the chest were performed without contrast. A dose lowering techni que was utilized adhering to the principles of ALARA. COMPARISON: None. FINDINGS: No fractures within the visualized osseous structures. There is a left-sided dual-chamber p acemaker. The central airways are patent. There is mild bronchial wall thickening. No pneumothorax. S mall to moderate bilateral pleural effusions are noted. Emphysema with scattered blebs seen throughou t the lungs. Scattered groundglass densities within the lungs most pronounced on the left. There is a lso patchy areas of consolidation seen within the base of the lingula and left lower lobe. This inclu belgica an irregular nodular density within the base of the left lower lobe on image 200 which measures 2 cm. There is mild interlobular septal thickening most pronounced on the left. Consolidation within t he bilateral lower lobes posteriorly favor compressive atelectasis from the pleural effusions. There is moderate diffuse body wall edema. Limited views of the upper abdomen demonstrate normal liver and spleen. The heart is moderately enlarged. Trace pericardial effusion. Mild calcified plaque within th e normal caliber thoracic aorta. Normal esophagus. No hilar lymphadenopathy. There is mild mediastina l lymphadenopathy. Calcifications at the apex of the left ventricle likely representing an old infarc t. There are dense calcifications within the coronary arteries. The pulmonary arteries at the upper l imits of normal for diameter. IMPRESSION: 1. Small moderate bilateral pleural effusions. 2. Scattered groundglass densities within the lungs most pronounced on the left with a few patchy are as of consolidation within the base of the left lower lobe. This favors a pneumonia could be due to a viral process. 3. There is mild interlobular septal thickening most pronounced on the left. In conjunction with the cardiomegaly, pleural effusions, and body wall edema, this favors mild pulmonary edema. 4. Trace pericardial effusion. 5. Mild mediastinal lymphadenopathy. This may be reactive or due to chronic pulmonary edema. 6. A 2 cm focal irregular density within the base of the lingula which likely represents a component of the pneumonia. However, 3-[address] follow-up recommended to ensure resolution. ACT 112: Positive. There are findings on this exam that require communication between the performing entity and the patient following Patient Test Result Information Act ([place] Act 112) guidelines. Electronically signed by: Bo Aleman M.D. 08/05/2021 3:22 PM
--- NOTE | 2021-08-05 16:55 | Hospitalist Progress Note ---
Date of Service August 05, 2021 Assessment & Plan (1) Acute on chronic HFrEF (heart failure with reduced ejection fraction): Plan: Presented with bilateral leg edema, exertional shortness of breath, weight gain but no chest pain and/or palpitation CXR: Diffuse airspace opacities are seen throughout both lungs and could represent pulmonary edema and/or multifocal pneumonia. Small pleural effusions. Appears to be volume overloaded, and less likely pneumonia, procalcitonin not elevated In ER given bumex 1mg IV and that was continued Has been diuresing well and getting better Continue to monitor I's and O's, daily weight, follow low sodium diet Case discussed with cardiology that recommended to continue to hold amiodarone Continue IV Bumex and plan to transition to po in am CT chest order to assess the lung due to concern of amiodarone toxicity CT chest showed small moderate bilateral pleural effusions. Scattered groundglass densities within the lungs most pronounced on the left with a few patchy areas of consolidation within the base of the left lower lobe. There is mild interlobular septal thickening most pronounced on the left. In conjunction with the cardiomegaly, pleural effusions, and body wall edema, this favors mild pulmonary edema.Mild mediastinal lymphadenopathy. A 2 cm focal irregular density within the base of the lingula which likely represents a component of the pneumonia. However, 3-[address] follow-up recommended to ensure resolution. Abnormal CT lung Scattered groundglass densities within the lungs most pronounced on the left with a few patchy areas of consolidation within the base of the left lower lobe. Mild mediastinal lymphadenopathy. A 2 cm focal irregular density within the base of the lingula which likely represents a component of the pneumonia. Follow CT chest in 3-6 month to ensure resolution. Starting on Doxycycline BID (2) Ischemic cardiomyopathy with implantable cardioverter-defibrillator (ICD): Plan: Patient is a 71-year-old male with PMH severe ischemic cardiomyopathy, H/O cardiac arrest 2018, s/p ICD, CAD, HTN, HLD, GERD, hypothyroidism presented to ER with complaint BLE edema, exertional SOB, and abnormal chest x-ray. Has noncompliant with diuretics for several weeks as he felt like he urinated too much and it caused burning with urination. Had outpatient CXR on 07/29/21 that s howed severe congestive change with diffuse airspace opacities and was referred to ER. Echo of the heart showed- LV moderately dilated, LV systolic function is severely reduced at 25 to 30%, RV is moderately dilated, RV systolic function is qualitatively normal, severe biatrial enlargement, aortic valve sclerosis mild without significant stenosis, mild AR, moderate MR, mild to moderate tricuspid regurgitation, dilated inferior vena cava with reduced collapsibility with stiff indicating elevated right atrial pressure of 15 mmHg, trivial anterior and apical pericardial effusion with moderate organization, no echocardiographic indications of cardiac tamponade, diastolic dysfunction grade 3 and a small bilateral pleural effusion, (3) Leg edema: Plan: Suspect BLE erythema secondary to edema and less likely cellulitis Will hold antibiotics at this time Venous duplex r/o DVT arterial duplex RLE to r/o occlusion-no arterial occlusion Advised to keep the legs elevated over 1 or 2 pillows while in bed and increase ambulation to decrease edema Has dry gangrenous type of wounds over toes and remain stable (4) CAD (coronary artery disease): Plan: Continue aspirin, plavix, atorvastatin, metoprolol succinate (5) HTN (hypertension): Plan: Continue metoprolol succinate (6) HLD (hyperlipidemia): Plan: Continue statin (7) Hypothyroidism: Plan: Outpatient TSH 16.5 on 07/29/21. Was instructed to increase levothyroxine from 25mcg daily to 50mcg daily x 2 weeks followed by 75mcg daily Continue levothyroxine 50mcg daily Will need outpatient TSH follow up Hypomagnesemia Mag 1.6 today Mg replaced DVT Prophylaxis Lovenox SQ Full Code Follows with Dr Cruz for routine care Disposition Will discharge once medically stable Admission and Anticipated Discharge Date Admission Date: July 31, 2021 Subjective Pt was seen and examined for follow up of SOB Sitting in chair with no acute distress Pt said that he walked around with physical therapy he said that his breathing improved Denies any chest pain, palpitation and fever Review of Systems Review of Systems: All systems reviewed & are unremarkable except as noted in Subjective Physical Exam Physical Exam: General- No acute distress Head- atraumatic Eyes- PERRL, EOMI, ENT- oropharynx clear Neck- supple, no JVD Lungs- clear to auscultation Heart- regular rhythm; + murmur Abdomen- normal bowel sounds, soft, nontender Extremities- no calf tenderness, +LE edema B/B Neuro- alert, oriented x 3; PERRL, EOMI; no facial palsy; no dysarthria Skin- warm & dry Results & Data Results & Data ([facility]) Vital Signs (Past 12 Hours) Vital Signs Temp Pulse Pulse Resp BP Pulse Ox 08/05/21 16:17 68 08/05/21 15:41 36.6 C 76 18 93/58 L 95 08/05/21 07:32 36.6 C 68 18 101/70 93 08/05/21 07:13 70
[2021-08-05] MEDS: ENOXAPARIN INJ 40 MG/0.4 ML SYR SQ SCH (22:17)
[2021-08-05] MEDS: POLYETHYLENE (MIRALAX) 17 GM PACK PO SCH (22:20)
[2021-08-06] MEDS: traMADol HCL 50 MG TABLET PO PRN ×2 (01:24→15:10)
[2021-08-06] MEDS: LEVOTHYROXINE SODIUM 50 MCG TABLET PO SCH (05:57)
[2021-08-06 07:11] LABS: BUN Creatinine Ratio 25.2 (10-20); Calcium 8.9 mg/dl (8.5-10.1); Creatinine Clr Calc Pharmacy 62.1 ml/min; Est GFR (African American) 81.1 ml/min; Magnesium 1.8 mg/dl (1.7-2.4); Potassium 4.1 mmol/L (3.5-5.1)
[2021-08-06] MEDS: CLOPIDOGREL BISULFATE 75 MG TAB PO SCH (08:49)
[2021-08-06] MEDS: DOXYCYCLINE HYCLATE 100 MG CAP PO SCH ×2 (08:49→20:50)
[2021-08-06] MEDS: METOPROLOL SUCC 50MG EXT REL TAB PO SCH ×2 (08:49→20:52)
[2021-08-06] MEDS: POTASSIUM CHLORIDE CRTAB 20 MEQ TABCR PO SCH (08:49)
[2021-08-06] MEDS: BUMETANIDE 1 MG in SYRINGE 0 ML IV SCH (08:49)
[2021-08-06] MEDS: ATORVASTATIN 40 MG TAB PO SCH (08:50)
[2021-08-06] MEDS: SPIRONOLACTONE 25 MG TAB PO SCH ×2 (08:51→20:56)
[2021-08-06] MEDS: DICLOFENAC SOD 1% GEL 100 GM TUBE EXT SCH ×2 (08:51→20:47)
[2021-08-06] MEDS: ASPIRIN 81 MG ECTAB PO SCH (08:51)
[2021-08-06] MEDS: FLUTICASONE PROPIONATE NA SPR 16 GM BTL NAE SCH (08:53)
--- NOTE | 2021-08-06 10:42 | Cardiology Progress Note ---
Date of Service August 06, 2021 Assessment & Plan (1) Acute on chronic HFrEF (heart failure with reduced ejection fraction): (2) Ischemic cardiomyopathy with implantable cardioverter-defibrillator (ICD): (3) NSVT (nonsustained ventricular tachycardia): Plan: Improved evidence of acute decompensated right greater than left biventricular congestive heart failure. Longstanding history of ischemic heart disease, severe ischemic cardiomyopathy Remote LAD territory myocardial infarction circa 1999 History of apical aneurysm, previously prescribed Coumadin anticoagulation (discontinued by the patient in May 2017) Witnessed cardiac arrest in May 2019, with return of spontaneous circulation prior to EMS arrival. Ejection fraction 15 to 19% at that time NYHA Class III systolic congestive heart failure. Status post 06/14/2019 cardiac catheterization revealing a 70-75% stenosis of the ostium of the left main trunk, 40% stenosis of the LAD, 35% diffuse disease the proximal right coronary artery stenosis, status post high risk PCI on 06/15/2019, successful drug-eluting stent implantation to the left main Status post Medtronic dual-chamber pacemaker defibrillator implantation on June 18, 2019 Hospitalization in December 2020 with pneumonia Hospitalization in December 2020 a couple of days after being discharged from the pneumonia hospitalization with severe symptomatic anemia, hemoglobin of 5.4. Profound acute blood loss attributed to duodenitis in the setting of chronic anti-platelet therapy (aspirin, prasugrel). Hypertension Hyperlipidemia with perceived intolerance to most lipid lowering therapies, tolerating atorvastatin. RECOMMENDATIONS: Discontinue IV Bumex Initiate oral torsemide, 10 mg twice per day, starting this afternoon. Decrease oral potassium chloride slightly from 40 mEq/day to 30 mEq/day. No ARB/Entresto, RE: hypotension. Reconsider periodically. Pulmonary consultation, RE: CT interpretation, recommendations. Amiodarone held/discontinued on 08/04/2021. Low suspicion for pneumonia. Admission and Anticipated Discharge Date Admission Date: July 31, 2021 Supervising Physician Co-Signing Physician Notes Patient seen and examined at bedside. Edema improving. Denies chest pain or shortness of breath. Tolerating diet and medications. Renal function remained stable. Remains in sinus rhythm on telemetry. PE: VSS. Gen: NAD, AAO x3. Heart: Regular, normal S1-S2. Lungs: Diminished breath sounds at the bases otherwise clear bilaterally. Extremities: 1+ bilateral pedal, and pretibial edema. A/P: Agree with above PA-C history, physical exam, assessment and plan. Continue IV Bumex 1 mg twice daily. Transition back to oral torsemide at discharge. Amiodarone will remain on hold. Toprol-XL titrated to 100 mg daily during hospitalization. Continue other outpatient cardiac medications as previously ordered. Pulmonary consultation appreciated. Repeat CT of the chest in 3 months recommended. Subjective Patient seen and examined. Chart, medications, and telemetry reviewed. Feeling OK. Tired today. Didn't sleep well last night. No worsening dyspnea. No chest pain. No palpitations. No dizziness/lightheadedness with positional change. Continuous telemetry monitoring reveals sinus rhythm in the 60-70s. No VT. I's/O's -5,[address] (see below) results discussed with patient. Review of Systems Review of Systems: Complete review of systems is otherwise as stated above, negative, or noncontributory. Physical Exam Physical Exam: General: Cachectic. HENT: Normocephalic. Atraumatic Eyes: Ecchymosis noted on right eyelid. PER. Conjunctiva pink, sclera pale. Neck: No carotid bruits. No JVD. Heart: Regular at 70 bpm. Soft systolic murmur heard throughout the precordium. No diastolic murmur. No rub. Lungs: Diminished. Decrease. No abnormal breath sounds auscultated. Abdomen: +BS. Soft. Nontender. No organomegaly. Extremities: Mild edema. Minimal erythema. No overt cellulitis. No clubbing. No cyanosis. Pulses: radial=2/4, posterior tibial=0/4. Results & Data ([facility]) Vital Signs (Past 12 Hours) Vital Signs Temp Pulse Pulse Resp BP BP Pulse Ox 08/06/21 07:38 36.7 C 120 H 18 100/62 91 08/06/21 07:26 69 08/06/21 03:49 36.7 C 128 H 18 110/68 93 08/05/21 23:24 36.4 C L 75 18 101/63 97 Laboratory Results Laboratory Results - last 24 hr 08/05/21 08/06/21 20:42 06:23 Sodium 136 Potassium 4.1 Chloride 102 Carbon Dioxide 26 Anion Gap 8 BUN 27 H Creatinine 1.07 Est Cr Clr Drug Dosing 62.1 Est GFR ( Amer) 81.1 Est GFR (Non-Af Amer) 70.0 BUN/Creatinine Ratio 25.2 H Glucose 86 POC Glucose 101 H Calcium 8.9 Magnesium 1.8 Diagnostic Findings August 05, 2021 CT Chest: No fractures within the visualized osseous structures. There is a left-sided dual-chamber pacemaker. The central airways are patent. There is mild bronchial wall thickening. No pneumothorax. Small to moderate bilateral pleural effusions are noted. Emphysema with scattered blebs seen throughout the lungs. Scattered groundglass densities within the lungs most pronounced on the left. There is also patchy areas of consolidation seen within the base of the lingula and left lower lobe. This includes an irregular nodular density within the base of the left lower lobe on image 200 which measures 2 cm. There is mild interlobular septal thickening most pronounced on the left. Consolidation within the bilateral lower lobes posteriorly favor compressive atelectasis from the pleural effusions. There is moderate diffuse body wall edema. Limited views of the upper abdomen demonstrate normal liver and spleen. The heart is moderately enlarged. Trace pericardial effusion. Mild calcified plaque within the normal caliber thoracic aorta. Normal esophagus. No hilar lymphadenopathy. There is mild mediastinal lymphadenopathy. Calcifications at the apex of the left ventricle likely representing an old infarct. There are dense calcifications within the coronary arteries. The pulmonary arteries at the upper limits of normal for diameter. IMPRESSION: 1. Small moderate bilateral pleural effusions. 2. Scattered groundglass densities within the lungs most pronounced on the left with a few patchy areas of consolidation within the base of the left lower lobe. This favors a pneumonia could be due to a viral process. 3. There is mild interlobular septal thickening most pronounced on the left. In conjunction with the cardiomegaly, pleural effusions, and body wall edema, this favors mild pulmonary edema. 4. Trace pericardial effusion. 5. Mild mediastinal lymphadenopathy. This may be reactive or due to chronic pulmonary edema. 6. A 2 cm focal irregular density within the base of the lingula which likely represents a component of the pneumonia. However, 3-[address] follow-up recommended to ensure resolution.
--- NOTE | 2021-08-06 15:12 | Pulmonary Consultation ---
Date of Consultation August 06, 2021 Assessment & Plan (1) Bilateral pleural effusion: (2) Shortness of breath: (3) Pulmonary nodule: (4) Abnormal chest CT: CT chest 08/05/2021 personally reviewed: Centrilobular and paraseptal emphysema appreciated bilaterally Patchy groundglass opacities appreciated bilaterally especially in the left upper lobe with interlobular thickening Left upper lobe anterior segment 2.1 cm pleural-based opacity Bilateral pleural effusion Mild mediastinal lymphadenopathy 2D echo 08/01/2021: EF 25-30%, moderate dilated right ventricle, systolic pulmona ry pressure 52 mmHg, grade 3 diastolic dysfunction --Left upper lobe pulmonary nodule No previous CAT scans to compare The location as well as the surrounding pulmonary architecture makes me think th is could be scarring versus pneumonia Give antibiotics for total of 7 days QTc 508 avoid QT prolonging antibiotic Mediastinal lymphadenopathy is likely from chronic CHF Repeat CT chest in 3 months --Bilateral pleural effusion Secondary to acute systolic plus diastolic CHF Continue with diuresis Patient saturating well on room air No indication for thoracentesis --COPD with emphysema Not on any inhalers at home Can consider discharging the patient on Spiriva or Incruse PFTs as an outpatient Plan: Give antibiotic for total of 10 days Continue with diuretics to keep the patient negative balance BiPAP nightly and as needed shortness of breath Repeat CT chest in 3 months Please note the above document was generated using voice recognition software. It may contain grammatical, syntax or spelling errors.Any formal questions or concerns about the content, text or information contained within the body of this dictation should be directly addressed to the provider for clarification. History of Present Illness Attending Physician: Albertina Torres MD History of Present Illness 71-year-old male presented to the hospital with complaints of shortness of breath Past medical history: Ischemic cardiomyopathy, history of cardiac arrest in 2019, coronary artery disease, GERD, hypertension, dyslipidemia, hypothyroidism Patient had CT chest done which showed bilateral pleural effusion as well as left upper lobe opacity Pulmonary consulted for the same At the time of examination patient states that he is feeling better when it c omes to his breathing He has been diuresing well with the medication that he has been getting Denies any chest pain, denies any significant cough. No hemoptysis He has lost weight in the last couple of months which she relates to him getting diuretics and losing swelling in his legs Denies any fever or chills. He does state that he has had pneumonias multiple times in the past especially in December of last year. As per the patient he has had CAT scan in the past but I personally looked into the system and I was not able to find any No headache, no blurry vision No belly pain Good appetite Social history: 28-xsso-fptl smoking history, quit in approximately 1999 Allergies Allergy/AdvReac Type Severity Reaction Status Date / Time ezetimibe [From Zetia] Allergy Unknown Unverified 07/31/21 16:58 gemfibrozil Allergy Unknown Unverified 07/31/21 16:56 Penicillins Allergy Verified 07/18/09 03:11 simvastatin Allergy Unknown Unverified 07/31/21 16:57 Home Medications Medication Instructions Recorded Confirmed Type Lactobacillus acidophilus 1.5 mg 250 mmu cells PO DAILY 07/31/21 07/31/21 History (250 million cell) capsule (Probiotic Acidophilus) amiodarone 100 mg tablet 100 mg PO DAILY 07/31/21 07/31/21 History aspirin 81 mg tablet,delayed 81 mg PO DAILY 07/31/21 07/31/21 History release atorvastatin 40 mg tablet 60 mg PO DAILY 07/31/21 07/31/21 History cefpodoxime 200 mg tablet 200 mg PO BID 07/31/21 07/31/21 History clopidogrel 75 mg tablet 75 mg PO DAILY 07/31/21 07/31/21 History doxycycline hyclate 100 mg capsule 100 mg PO BID 07/31/21 07/31/21 History fluticasone propionate 50 2 spray INTRANASAL DAILY 07/31/21 07/31/21 History mcg/actuation nasal spray,suspension levothyroxine 75 mcg tablet 75 mcg PO DAILYBB 07/31/21 07/31/21 History metoprolol succinate 25 mg 25 mg PO DAILY 07/31/21 07/31/21 History tablet,extended release 24 hr nitroglycerin 0.4 mg sublingual 0.4 mg SUBLINGUAL UD PRN 07/31/21 07/31/21 History tablet potassium chloride 10 mEq 30 meq PO Q2D 07/31/21 07/31/21 History capsule,extended release potassium chloride 10 mEq 40 meq PO Q2D 07/31/21 07/31/21 History capsule,extended release potassium chloride 10 mEq 20 meq PO Q2D 07/31/21 07/31/21 History tablet,extended release(part/cryst) (Klor-Con M) potassium chloride 10 mEq 40 meq PO Q2D 07/31/21 07/31/21 History tablet,extended release(part/cryst) (Klor-Con M) torsemide 20 mg tablet 20 mg PO UD 07/31/21 07/31/21 History tramadol 50 mg tablet 50 mg PO BID PRN 07/31/21 07/31/21 History Patient History Medical History (Updated 08/06/21 @ 15:19 by Ale Gunter MD) CAD (coronary artery disease) Chronic heart failure with reduced ejection fraction and diastolic dysfunction GERD (gastroesophageal reflux disease) HLD (hyperlipidemia) HTN (hypertension) Hypothyroidism ICD (implantable cardioverter-defibrillator) in place 06/18/19 placed at [facility] Surgical History (Updated 07/31/21 @ 16:21 by Pina Lara PA-C) Hx of cardiac cath 06/15/19: left main, DEMI, [facility] Family History (Updated 07/31/21 @ 16:22 by Pina Lara PA-C) Mother Breast cancer Social History (Updated 07/31/21 @ 16:22 by Pina Lara PA-C) Smoking Status: Never smoker Tobacco Type: Cigarettes Hx Alcohol Use: Yes Alcohol type: hard liquor Hx Substance Use: No Preferred Language: Amharic Communication Ability: Effective Integrity Director Required: No Beliefs That Will Affect Care: None Current Living Situation: Alone Current Living Situation Comment: HOME ALONE Other Information That Helps Us Care for You: No Feels Safe at Home: Yes Safety Concerns: Feels Safe At This Time Assistive Devices: Walker Review of Systems Review of Systems: All systems reviewed & are unremarkable except as noted in HPI & below Physical Exam Physical Exam: Constitutional: No acute distress HEENT: EOMI, PERRLA Respiratory system: Decreased air entry bilaterally, no wheeze, no rhonchi, positive crackles bilaterally CVS: S1-S2 positive, no murmurs or gallops Abdomen: Soft, nontender, nondistended, positive bowel sounds x4 Extremities: +2 pulses bilaterally radialis/ dorsalis pedis, no cyanosis, +2 pitting edema bilateral lower extremity Neuro: Awake alert oriented x3 Psych: Normal mood and affect G/U: Positive Garcia none Skin: no rashes, warm and dry Lymphatic: no cervical or axillary lymphadenopathy Results & Data Results & Data ([facility]) Vital Signs (Past 12 Hours) Vital Signs Temp Pulse Pulse Resp BP BP Pulse Ox 08/06/21 11:37 36.4 C L 79 18 115/74 95 08/06/21 07:38 36.7 C 120 H 18 100/62 91 08/06/21 07:26 69 08/06/21 03:49 36.7 C 128 H 18 110/68 93 Laboratory Results 08/03/21 07:17 08/06/21 06:23 PG Care Time/CCT Total # of Minutes Spent Total Time Spent with Patient: Total time spent is greater than 50% in coordination of care (as documented) at patient's floor/unit and/or counseling patient: [place] [address] Initial Inpt Care Lvl 3 Patient Type New Diagnoses Bilateral pleural effusion J90 Shortness of breath R06.02 Pulmonary nodule R91.[address] R93.89
--- NOTE | 2021-08-06 20:30 | Hospitalist Progress Note ---
Date of Service August 06, 2021 Assessment & Plan (1) Acute on chronic HFrEF (heart failure with reduced ejection fraction): Plan: Presented with bilateral leg edema, exertional shortness of breath, weight gain but no chest pain and/or palpitation CXR: Diffuse airspace opacities are seen throughout both lungs and could represent pulmonary edema and/or multifocal pneumonia. Small pleural effusions. Appears to be volume overloaded, and less likely pneumonia, procalcitonin not elevated In ER given bumex 1mg IV and that was continued Has been diuresing well and getting better Continue to monitor I's and O's, daily weight, follow low sodium diet Case discussed with cardiology that recommended to continue to hold amiodarone CT chest order to assess the lung due to concern of amiodarone toxicity CT chest showed small moderate bilateral pleural effusions. Scattered groundglass densities within the lungs most pronounced on the left with a few patchy areas of consolidation within the base of the left lower lobe. There is mild interlobular septal thickening most pronounced on the left. In conjunction with the cardiomegaly, pleural effusions, and body wall edema, this favors mild pulmonary edema.Mild mediastinal lymphadenopathy. A 2 cm focal irregular density within the base of the lingula which likely represents a component of the pneumonia. However, 3-[address] follow-up recommended to ensure resolution. IV Bumex transition to torsemide 10 mg twice daily Will monitor BMP Abnormal CT lung Scattered ground glass densities within the lungs most pronounced on the left with a few patchy areas of consolidation within the base of the left lower lobe. Mild mediastinal lymphadenopathy. A 2 cm focal irregular density within the base of the lingula which likely represents a component of the pneumonia. Pulmonology on board Recommend to complete 7 days course of doxycycline Will need a repeat CT chest in 3 months to ensure resolution outpatient (2) Ischemic cardiomyopathy with implantable cardioverter-defibrillator (ICD): Plan: Patient is a 71-year-old male with PMH severe ischemic cardiomyopathy, H/O cardiac arrest 2018, s/p ICD, CAD, HTN, HLD, GERD, hypothyroidism presented to ER with complaint BLE edema, exertional SOB, and abnormal chest x-ray. Has noncompliant with diuretics for several weeks as he felt like he urinated too much and it caused burning with urination. Had outpatient CXR on 07/29/21 that showed severe congestive change with diffuse airspace opacities and was referred to ER. Echo of the heart showed- LV moderately dilated, LV systolic function is severely reduced at 25 to 30%, RV is moderately dilated, RV systolic function is qualitatively normal, severe biatrial enlargement, aortic valve sclerosis mild without significant stenosis, mild AR, moderate MR, mild to moderate tricuspid regurgitation, dilated inferior vena cava with reduced collapsibility with stiff indicating elevated right atrial pressure of 15 mmHg, trivial anterior and apical pericardial effusion with moderate organization, no echocardiographic indications of cardiac tamponade, diastolic dysfunction grade 3 and a small bilateral pleural effusion, (3) Leg edema: Plan: Suspect BLE erythema secondary to edema and less likely cellulitis Will hold antibiotics at this time Venous duplex r/o DVT arterial duplex RLE to r/o occlusion-no arterial occlusion Advised to keep the legs elevated over 1 or 2 pillows while in bed and increase ambulation to decrease edema Has dry gangrenous type of wounds over toes and remain stable (4) CAD (coronary artery disease): Plan: Continue aspirin, plavix, atorvastatin, metoprolol succinate (5) HTN (hypertension): Plan: Continue metoprolol succinate (6) HLD (hyperlipidemia): Plan: Continue statin (7) Hypothyroidism: Plan: Outpatient TSH 16.5 on 07/29/21. Was instructed to increase levothyroxine from 25mcg daily to 50mcg daily x 2 weeks followed by 75mcg daily Continue levothyroxine 50mcg daily Will monitor TSH COPD with emphysema Can consider discharging the patient on Spiriva or Incruse PFTs as an outpatient Hypomagnesemia Mag 1.8 today Mg stable DVT Prophylaxis Lovenox SQ Full Code Follows with Dr Cruz for routine care Disposition Will discharge once medically stable Admission and Anticipated Discharge Date Admission Date: July 31, 2021 Subjective Patient was seen and examined for follow-up of shortness of breath Sitting on the edge of the bed with no acute distress Denies any new complaint Review of Systems Review of Systems: All systems reviewed & are unremarkable except as noted in Subjective Physical Exam Physical Exam: General- No acute distress Head- atraumatic Eyes- PERRL, EOMI, ENT- oropharynx clear Neck- supple, no JVD Lungs- clear to auscultation Heart- regular rhythm; + murmur Abdomen- normal bowel sounds, soft, nontender Extremities- no calf tenderness, +LE edema B/B Neuro- alert, oriented x 3; PERRL, EOMI; no facial palsy; no dysarthria Skin- warm & dry Results & Data Results & Data ([facility]) Vital Signs (Past 12 Hours) Vital Signs Temp Pulse Pulse Resp BP BP Pulse Ox 08/06/21 19:00 36.5 C 67 20 118/69 95 08/06/21 15:23 72 08/06/21 15:00 36.6 C 68 18 114/68 95 08/06/21 11:37 36.4 C L 79 18 115/74 95
[2021-08-06] MEDS: ENOXAPARIN INJ 40 MG/0.4 ML SYR SQ SCH (20:51)
[2021-08-06] MEDS: TORSEMIDE 10 MG TAB PO SCH (20:57)
[2021-08-06] MEDS: POLYETHYLENE (MIRALAX) 17 GM PACK PO SCH (20:59)
[2021-08-06] MEDS ORDERED: DOXYCYCLINE HYCLATE 100 MG CAP PO SCH (21:00)
[2021-08-06] MEDS: ACETAMINOPHEN 325 MG TAB PO PRN (21:10)
[2021-08-07] MEDS: traMADol HCL 50 MG TABLET PO PRN (03:38)
[2021-08-07] MEDS: LEVOTHYROXINE SODIUM 50 MCG TABLET PO SCH (05:31)
[2021-08-07 08:22] LABS: BUN Creatinine Ratio 27.3 (10-20); Calcium 8.9 mg/dl (8.5-10.1); Creatinine Clr Calc Pharmacy 60.5 ml/min; Est GFR (African American) 78.4 ml/min; Est GFR (Non-African American) 67.7 ml/min
[2021-08-07] MEDS ORDERED: POTASSIUM CHLORIDE 10 MEQ TABCR PO SCH (09:00)
[2021-08-07] MEDS: ATORVASTATIN 40 MG TAB PO SCH (09:15)
[2021-08-07] MEDS: DICLOFENAC SOD 1% GEL 100 GM TUBE EXT SCH (09:15)
[2021-08-07] MEDS: DOXYCYCLINE HYCLATE 100 MG CAP PO SCH (09:15)
[2021-08-07] MEDS: CLOPIDOGREL BISULFATE 75 MG TAB PO SCH (09:16)
[2021-08-07] MEDS: ASPIRIN 81 MG ECTAB PO SCH (09:16)
[2021-08-07] MEDS: SPIRONOLACTONE 25 MG TAB PO SCH (09:16)
[2021-08-07] MEDS: TORSEMIDE 10 MG TAB PO SCH (09:16)
[2021-08-07] MEDS: METOPROLOL SUCC 50MG EXT REL TAB PO SCH (09:17)
[2021-08-07] MEDS: FLUTICASONE PROPIONATE NA SPR 16 GM BTL NAE SCH (09:17)
--- NOTE | 2021-08-07 10:14 | Cardiology Progress Note ---
Date of Service August 07, 2021 Assessment & Plan (1) Acute on chronic HFrEF (heart failure with reduced ejection fraction): (2) Ischemic cardiomyopathy with implantable cardioverter-defibrillator (ICD): (3) NSVT (nonsustained ventricular tachycardia): Plan: Improved evidence of acute decompensated right greater than left biventricular congestive heart failure. Longstanding history of ischemic heart disease, severe ischemic cardiomyopathy. Remote LAD territory myocardial infarction circa 1999 History of apical aneurysm, previously prescribed Coumadin anticoagulation (discontinued by the patient in May 2017) Witnessed cardiac arrest in May 2019, with return of spontaneous circulation prior to EMS arrival. Ejection fraction 15 to 19% at that time NYHA Class III systolic congestive heart failure. Status post 06/14/2019 cardiac catheterization revealing a 70-75% stenosis of the ostium of the left main trunk, 40% stenosis of the LAD, 35% diffuse disease the proximal right coronary artery stenosis, status post high risk PCI on 06/15/2019, successful drug-eluting stent implantation to the left main Status post Medtronic dual-chamber pacemaker defibrillator implantation on June 18, 2019 Hospitalization in December 2020 with pneumonia Hospitalization in December 2020 a couple of days after being discharged from the pneumonia hospitalization with severe symptomatic anemia, hemoglobin of 5.4. Profound acute blood loss attributed to duodenitis in the setting of chronic anti-platelet therapy (aspirin, prasugrel). Hypertension Hyperlipidemia with perceived intolerance to most lipid lowering therapies, tolerating atorvastatin. RECOMMENDATIONS: Continue cardiac medications as presently prescribed. Increase levothyroxine dosing No ARB/Entresto, RE: hypotension. Reconsider periodically. Amiodarone discontinued on August 04, 2021 due to concern for amiodarone induced pulmonary toxicity, prolonged QTC (508 ms), patient request. Outpatient cardiology follow-up at [facility] on Wednesday, August 11, 2021 at 11:45 AM Admission and Anticipated Discharge Date Admission Date: July 31, 2021 Supervising Physician Co-Signing Physician Notes Patient seen and examined at bedside. Edema improving. Denies chest pain or shortness of breath. Tolerating diet and medications. Renal function remained stable. Remains in sinus rhythm on telemetry. PE: VSS. Gen: NAD, AAO x3. Heart: Regular, normal S1-S2. Lungs: Diminished breath sounds at the bases otherwise clear bilaterally. Extremities: 1+ bilateral pedal, and pretibial edema. A/P: Agree with above PA-C history, physical exam, assessment and plan. Discontinue IV Bumex. Transition patient back to oral torsemide 20 mg daily. Amiodarone will remain on hold. Toprol-XL titrated to 100 mg daily during hospitalization. Continue other outpatient cardiac medications as previously ordered. Pulmonary consultation appreciated. Repeat CT of the chest in 3 months recommended. Outpatient cardiology follow-up in 1 week. Subjective Patient seen and examined. Chart, medications, and telemetry reviewed. Feeling better today. Slept better. Still tired. No chest pain. No palpitations. No new or worsening dyspnea. No dizziness/lightheadedness with positional change. No subjective fevers or chills. Continuous telemetry monitoring reveals sinus rhythm in the 60-70s. No VT. I's/O's -5,476 mL's overall Daughter Afia updated via telephone ([phone]) as requested by the patient. Review of Systems Review of Systems: Complete review of systems is otherwise as stated above, negative, or noncontributory. Physical Exam Physical Exam: General: No acute distress. HENT: Normocephalic. Atraumatic Eyes: Ecchymosis noted on right eyelid. PER. Conjunctiva pink, sclera pale. Neck: No carotid bruits. No JVD. Heart: Regular at 66 bpm. Soft systolic murmur heard throughout the precordium. No diastolic murmur. No rub. Lungs: Diminished. Decrease. No abnormal breath sounds auscultated. Abdomen: +BS. Soft. Nontender. No organomegaly. Extremities: Mild edema. Minimal erythema. No overt cellulitis. No clubbing. No cyanosis. Pulses: radial=2/4, posterior tibial=0/4. Results & Data ([facility]) Vital Signs (Past 12 Hours) Vital Signs Temp Pulse Pulse Resp BP Pulse Ox 08/07/21 07:25 61 08/07/21 07:00 36.3 C L 62 20 117/71 93 08/07/21 03:35 36.4 C L 63 20 126/74 98 08/06/21 22:18 66
--- NOTE | 2021-08-07 10:57 | Pulmonology Progress Note ---
Date of Service August 07, 2021 Assessment & Plan (1) Bilateral pleural effusion: (2) Shortness of breath: (3) Pulmonary nodule: (4) Abnormal chest CT: Plan: CT chest 08/05/2021 personally reviewed: Centrilobular and paraseptal emphysema appreciated bilaterally Patchy groundglass opacities appreciated bilaterally especially in the le ft upper lobe with interlobular thickening Left upper lobe anterior segment 2.1 cm pleural-based opacity Bilateral pleural effusion Mild mediastinal lymphadenopathy 2D echo 08/01/2021: EF 25-30%, moderate dilated right ventricle, systolic pulmonary pressure 52 mmHg, grade 3 diastolic dysfunction --Left upper lobe pulmonary nodule No previous CAT scans to compare The location as well as the surrounding pulmonary architecture makes me think this could be scarring versus pneumonia Give antibiotics for total of 10 days QTc 508 avoid QT prolonging antibiotic Mediastinal lymphadenopathy is likely from chronic CHF Repeat CT chest in 3 months --Bilateral pleural effusion Secondary to acute systolic plus diastolic CHF Continue with diuresis Patient saturating well on room air No indication for thoracentesis --COPD with emphysema Not on any inhalers at home Can consider discharging the patient on Spiriva or Incruse PFTs as an outpatient Plan: Complete the course of antibiotics for total of [address] chest in 3 months All question inquiries of the patient were answered in depth As per him he had a CAT scan done last year, would recommend to see if we can get report as well as images pushed into her system No further recommendations from pulmonary perspective. Will sign off. Call directly with any questions Please note the above document was generated using voice recognition software. It may contain grammatical, syntax or spelling errors.Any formal questions or concerns about the content, text or information contained within the body of this dictation should be directly addressed to the provider for clarification. Admission and Anticipated Discharge Date Admission Date: July 31, 2021 Subjective Patient seen and examined at bedside. No acute distress, noted with events overnight Shortness of breath is improved Has been diuresing well When asking question with a need to be on high-dose diuretics even at home Denies any chest pain Good appetite Review of Systems Review of Systems: All systems reviewed & are unremarkable except as noted in Subjective Physical Exam Physical Exam: Constitutional: No acute distress HEENT: EOMI, PERRLA Respiratory system: Decreased air entry bilaterally, no wheeze, no rhonchi, positive crackles bilaterally CVS: S1-S2 positive, no murmurs or gallops Abdomen: Soft, nontender, nondistended, positive bowel sounds x4 Extremities: +2 pulses bilaterally radialis/ dorsalis pedis, no cyanosis, +2 pitting edema bilateral lower extremity Neuro: Awake alert oriented x3 Psych: Normal mood and affect G/U: Positive Garcia none Skin: no rashes, warm and dry Lymphatic: no cervical or axillary lymphadenopathy Results & Data Results & Data ([facility]) Vital Signs (Past 12 Hours) Vital Signs Temp Pulse Pulse Resp BP Pulse Ox 08/07/21 07:25 61 08/07/21 07:00 36.3 C L 62 20 117/71 93 08/07/21 03:35 36.4 C L 63 20 126/74 98 Laboratory Results 08/03/21 07:17 08/07/21 07:05 PG Care Time/CCT Total # of Minutes Spent Total Time Spent with Patient: Total time spent is greater than 50% in coordination of care (as documented) at patient's floor/unit and/or counseling patient: Coding [place] [address] Subseq Hosp Care Lvl 2 Patient Type Established Diagnoses Bilateral pleural effusion J90 Shortness of breath R06.02 Pulmonary nodule R91.[address] R93.89
--- NOTE | 2021-08-07 13:42 | Discharge Summary ---
Date of Service August 07, 2021 Admission HPI Per Admitting Provider Patient is a 71-year-old male with PMH severe ischemic cardiomyopathy, H/O cardiac arrest 2019, s/p ICD, CAD, HTN, HLD, GERD, hypothyroidism presented to ER with complaint of abnormal chest x-ray. Patient has been followed outpatient with [facility]. Patient has been noncompliant with diuretics for several weeks as he felt like he urinated too much and it caused burning with urination. Recent reported increased BLE edema with erythema and weeping. Patient feels his BLE edema and erythema have improved over past several days. Was started on doxycycline yesterday. Also reports SOB with exertion. Has nonproductive cough. Had outpatient CXR on 07/29/21 that showed severe congestive change with diffuse airspace opacities and was referred to ER. Patient does admit to falling at home a couple of times over past few months. States most recent fall and swelling to right hand which has since improved. Denies fever/chills, diaphoresis, N/V/D/C, KIM, dizziness, syncope, vision changes, neck pain, CP, palpitations, sore throat, choking, otalgia, rhinorrhea, abdominal pain, paresthesias, extremity weakness, other rashes, hematuria. Admission Exam Per Admitting Provider General: no distress, cachectic Head: normocephalic, atraumatic Eyes: PERRL, EOM's intact, conjunctiva non-injected, anicteric ENT: normal inspection external ears, nose, mucous membranes moist Neck: supple, trachea midline Lungs: clear, no respiratory distress, no wheezing/rhonchi/rales CV: RRR, 1-2+ pretibial edema Abd: normal BS, soft, non-tender Ext: no cyanosis, no calf tenderness Neuro: A&O x 3, no focal deficits noted, normal affect Skin: warm, dry, +ecchymosis RUE, right flank, bilateral lower extremities with erythema without warmth, multiple ulcers noted to right foot without discharge Principal Diagnosis Acute on chronic HFrEF (heart failure with reduced ejection fraction): Left upper lobe pulmonary nodule Ischemic cardiomyopathy with implantable cardioverter-defibrillator (ICD): Leg edema: CAD (coronary artery disease): HTN (hypertension): Hypothyroidism: COPD with emphysema Discharge Exam General- No acute distress Head- atraumatic Eyes- PERRL, EOMI, ENT- oropharynx clear Neck- supple, no JVD Lungs- clear to auscultation Heart- regular rhythm; + murmur Abdomen- normal bowel sounds, soft, nontender Extremities- no calf tenderness, +LE edema B/B Neuro- alert, oriented x 3; PERRL, EOMI; no facial palsy; no dysarthria Skin- warm & dry Discharge Data Allergies Allergy/AdvReac Type Severity Reaction Status Date / Time ezetimibe [From Zetia] Allergy Unknown Unverified 07/31/21 16:58 gemfibrozil Allergy Unknown Unverified 07/31/21 16:56 Penicillins Allergy Verified 07/18/09 03:11 simvastatin Allergy Unknown Unverified 07/31/21 16:57 Consultations 07/31/21 14:42 ED Decision to Admit Stat 07/31/21 17:42 Consult Cardiology Routine 08/06/21 10:50 Consult Pulmonology Routine Ordered Studies 07/31/21 17:03 US venous doppler LE BI Urgent 07/31/21 18:27 US arterial duplex LE RT Routine 08/05/21 11:43 CT chest diagnostic wo con Routine CT chest diagnostic wo con CT DOSE: 283.87 mGy.cm HISTORY: Shortness of breath. Abnormal CXR. ? Amio toxicity TECHNIQUE: Multiaxial CT images of the chest were performed without contrast. A dose lowering technique was utilized adhering to the principles of ALARA. COMPARISON: None. FINDINGS: No fractures within the visualized osseous structures. There is a left-sided dual-chamber pacemaker. The central airways are patent. There is mild bronchial wall thickening. No pneumothorax. Small to moderate bilateral pleural effusions are noted. Emphysema with scattered blebs seen throughout the lungs. Scattered groundglass densities within the lungs most pronounced on the left. There is also patchy areas of consolidation seen within the base of the lingula and left lower lobe. This includes an irregular nodular density within the base of the left lower lobe on image 200 which measures 2 cm. There is mild interlobular septal thickening most pronounced on the left. Consolidation within the bilateral lower lobes posteriorly favor compressive atelectasis from the pleural effusions. There is moderate diffuse body wall edema. Limited views of the upper abdomen demonstrate normal liver and spleen. The heart is moderately enlarged. Trace pericardial effusion. Mild calcified plaque within the normal caliber thoracic aorta. Normal esophagus. No hilar lymphadenopathy. There is mild mediastinal lymphadenopathy. Calcifications at the apex of the left ventricle likely representing an old infarct. There are dense calcifications within the coronary arteries. The pulmonary arteries at the upper limits of normal for diameter. IMPRESSION: 1. Small moderate bilateral pleural effusions. 2. Scattered groundglass densities within the lungs most pronounced on the left with a few patchy areas of consolidation within the base of the left lower lobe. This favors a pneumonia could be due to a viral process. 3. There is mild interlobular septal thickening most pronounced on the left. In conjunction with the cardiomegaly, pleural effusions, and body wall edema, this favors mild pulmonary edema. 4. Trace pericardial effusion. 5. Mild mediastinal lymphadenopathy. This may be reactive or due to chronic pulmonary edema. 6. A 2 cm focal irregular density within the base of the lingula which likely represents a component of the pneumonia. However, 3-[address] follow-up recommended to ensure resolution. ACT 112: Positive. There are findings on this exam that require communication between the performing entity and the patient following Patient Test Result Information Act ([place] Act 112) guidelines. Electronically signed by: Bo Aleman M.D. 08/05/2021 3:22 PM Dictated:08/05/21 1510 Transcribed: 08/05/21 1510 XR chest 2V PA/lateral CLINICAL HISTORY: sob. ? CHF versus other. On amiodarone COMPARISON STUDY: Chest radiograph July 31, 2021. FINDINGS: Dual lead left subclavian pacer/AICD is in place. Moderate cardiomegaly is noted. There is no pneumothorax. There are small bilateral pleural effusions. Interstitial thickening and bilateral opacities, greater within the left lung, persist. IMPRESSION: 1. Persistent interstitial thickening and bilateral opacities. The findings favor pulmonary edema or pneumonia. Amiodarone toxicity is within the diff erential although statistically less likely. 2. Small bilateral pleural effusions. ACT 112: Negative or not required by law. Electronically signed by: Rick Dunn M.D. 08/03/2021 12:04 PM Dictated:08/03/21 1202 Transcribed: 08/03/21 1202 US arterial duplex LE RT HISTORY: 71 years-old Male r/o occlusion acute pain and swelling of the lower legs COMPARISON: Duplex venous Doppler study TECHNIQUE: Multiple real-time sonographic images of the right lower extremity arterial structures were obtained assessing grayscale appearance, color and spectral flow FINDINGS: There is diffuse atherosclerotic vascular disease. No elevated peak systolic velocities to suggest high-grade stenosis. There are probably triphasic wave forms noted above the level of the knee. Monophasic and biphasic waveforms are noted within the popliteal and calf arteries. Blunted monophasic waveforms in the dorsalis pedis artery. IMPRESSION: 1. No arterial occlusion or elevated peak systolic velocities to suggest high- grade stenosis. 2. Monophasic and biphasic waveforms of the right lower leg. ACT 112: Negative or not required by law. The above report was generated using voice recognition software. It may contain grammatical, syntax or spelling errors. Electronically signed by: Hussein Salazar M.D. 07/31/2021 11:40 PM Dictated:07/31/212337 Transcribed: 07/31/212339 BILATERAL LOWER EXTREMITY VENOUS DOPPLER HISTORY: Acute pain and swelling of the lower legs r/o DVT COMPARISON STUDY: Arterial Doppler of same day FINDINGS: There is normal compressibility, flow, and augmentation within the bilateral lower extremity deep venous systems. Occlusive superficial venous thrombus within the right popliteal fossa extends for a length of 3.7 cm. This is not in close proximity to the deep venous confluence. Subcutaneous edema. Bilateral Goddard's cysts measure up to 2.3 cm on the right. There is a 5.8 x 1.1 x 1.5 cm complex hypoechoic collection within the right posterior calf. IMPRESSION: 1. No DVT within the right or left lower extremity. 2. Short segment (less than 5 cm) superficial venous thrombus of the right lower extremity. 3. Suggested hematoma of the right calf measures 5.8 cm. ACT 112: Negative or not required by law. Electronically signed by: Hussein Salazar M.D. 07/31/2021 11:38 PM Dictated:07/31/212335 Transcribed: 07/31/212335 SINGLE VIEW CHEST CLINICAL HISTORY: Atypical chest pain. FINDINGS: An AP, portable, upright chest radiograph is obtained. No prior studies are available for comparison at the time of dictation. The examination is degraded by portable technique and patient rotation. A 2-lead cardiac AICD is in place and partially obscures the left upper chest. The heart is enlarged noting atherosclerotic calcification of the thoracic aorta. Extensive airspace opacities are seen throughout both lungs. There are small pleural effusions. No pneumothorax is seen. The skeletal structures are osteopenic. The bony thorax is grossly intact. Degenerative change and scoliosis is noted in the thoracic spine. IMPRESSION: 1. Cardiomegaly and AICD. 2. Diffuse airspace opacities are seen throughout both lungs and could represent pulmonary edema and/or multifocal pneumonia. Clinical correlation will be required and radiographic follow-up to resolution is recommended. 3. Small pleural effusions. ACT 112: Negative or not required by law. Electronically signed by: Perry Kauffman M.D. 07/31/2021 12:29 PM Dictated:07/31/21 1228 Transcribed: 07/31/21 1228 Hospital Course (1) Acute on chronic HFrEF (heart failure with reduced ejection fraction): Presented with bilateral leg edema, exertional shortness of breath, weight gain but no chest pain and/or palpitation CXR: Diffuse airspace opacities are seen throughout both lungs and could represent pulmonary edema and/or multifocal pneumonia. Small pleural effusions. Appears to be volume overloaded, and less likely pneumonia, procalcitonin not elevated In ER given bumex 1mg IV and that was continued Has been diuresing well and getting better Continue to monitor I's and O's, daily weight, follow low sodium diet Case discussed with cardiology that recommended to continue to hold amiodarone CT chest order to assess the lung due to concern of amiodarone toxicity CT chest showed small moderate bilateral pleural effusions. Scattered groundglass densities within the lungs most pronounced on the left with a few patchy areas of consolidation within the base of the left lower lobe. There is mild interlobular septal thickening most pronounced on the left. In conjunction with the cardiomegaly, pleural effusions, and body wall edema, this favors mild pulmonary edema.Mild mediastinal lymphadenopathy. A 2 cm focal irregular density within the base of the lingula which likely represents a comp onent of the pneumonia. However, 3-[address] follow-up recommended to ensure resolution. IV Bumex transition to torsemide 10 mg twice daily Will monitor BMP Abnormal CT lung Scattered ground glass densities within the lungs most pronounced on the left with a few patchy areas of consolidation within the base of the left lower lobe. Mild mediastinal lymphadenopathy. A 2 cm focal irregular density within the base of the lingula which likely represents a component of the pneumonia. Pulmonology on board Recommend to complete 7 days course of doxycycline Will need a repeat CT chest in 3 months to ensure resolution outpatient (2) Ischemic cardiomyopathy with implantable cardioverter-defibrillator (ICD): Patient is a 71-year-old male with PMH severe ischemic cardiomyopathy, H/O cardiac arrest 2018, s/p ICD, CAD, HTN, HLD, GERD, hypothyroidism presented to ER with complaint BLE edema, exertional SOB, and abnormal chest x-ray. Has noncompliant with diuretics for several weeks as he felt like he urinated too much and it caused burning with urination. Had outpatient CXR on 07/29/21 that showed severe congestive change with diffuse airspace opacities and was referred to ER. Echo of the heart showed- LV moderately dilated, LV systolic function is severely reduced at 25 to 30%, RV is moderately dilated, RV systolic function is qualitatively normal, severe biatrial enlargement, aortic valve sclerosis mild without significant stenosis, mild AR, moderate MR, mild to moderate tricuspid regurgitation, dilated inferior vena cava with reduced collapsibility with stiff indicating elevated right atrial pressure of 15 mmHg, trivial anterior and apical pericardial effusion with moderate organization, no echocardiographic indications of cardiac tamponade, diastolic dysfunction grade 3 and a small bilateral pleural effusion, (3) Leg edema: Suspect BLE erythema secondary to edema and less likely cellulitis Will hold antibiotics at this time Venous duplex r/o DVT arterial duplex RLE to r/o occlusion-no arterial occlusion Advised to keep the legs elevated over 1 or 2 pillows while in bed and increase ambulation to decrease edema Has dry gangrenous type of wounds over toes and remain stable (4) CAD (coronary artery disease): Continue aspirin, plavix, atorvastatin, metoprolol succinate (5) HTN (hypertension): Continue metoprolol succinate (6) HLD (hyperlipidemia): Continue statin (7) Hypothyroidism: Outpatient TSH 16.5 on 07/29/21. Was instructed to increase levothyroxine from 25mcg daily to 50mcg daily x 2 weeks followed by 75mcg daily TSH 19 Will increase Levothyroxine to 75 mcg daily Check TSH in 4 to 6 weeks COPD with emphysema Can consider discharging the patient on Spiriva or Incruse PFTs as an outpatient Hypomagnesemia Mag 1.8 today Mg stable DVT Prophylaxis Lovenox SQ Full Code Follows with Dr Cruz for routine care Disposition Will discharge home today Total Time Total Time Spent Total Time Spent (In Minutes): 35 minutes Discharge Plan Discharge Items Patient Disposition: Home - Home Health Services Reason For Visit: ACUTE ON CHRONIC CHF Discharge Diagnosis: Acute on chronic HFrEF (heart failure with reduced ejection fraction): Left upper lobe pulmonary nodule Ischemic cardiomyopathy with implantable cardioverter-defibrillator (ICD): Leg edema: CAD (coronary artery disease): HTN (hypertension): Hypothyroidism: COPD with emphysema Activity: Resume your previous activity Non-emergency contact: Primary Care Provider and Moulder Operator Call non-emergency contact if: you have any medication questions Follow-up/Referrals: Gabo Cruz MD [Primary Care Provider] - 08/14/21 2:20 pm (Date & Time 08/14/2021 2:20 PM Provider Gabo Cruz MD Department Family Medicine [facility] ) Jacek Coon [Physician Family Worker] - 08/11/21 12:00 pm (Date & Time 08/11/2021 12:00 PM Provider Jacek Coon PA-C Department Cardiology [facility] ) Diet: Heart Healthy Addtl Attending Provider Instructions: Follow up wit your primary care provider Dr. Cruz on 08/14/2021 @2:20 PM at the Family Medicine [facility] Follow up with cardiology Shaggy MALLOY on 08/11/2021 @ 12:00 PM at the Cardiology [facility] Your physician will need to get a repeat CAT scan in 3 months to monitor the left upper lung nodule Check BMP in 1-2 weeks to monitor renal function and electrolytes Check TSH in 4 to 6 weeks to monitor your thyroid function Seek medical attention if your symptoms worsening Fall precaution Levothyroxine increased to 75mcg daily Amiodarone discontinued Pending Studies at Discharge: No Stand-Alone Forms: My [employer] Program, Smoking Cessation Medications and DC Order Prescriptions: New Incruse Ellipta 62.5 mcg/actuation Blister With Device 1 inh inhalation DAILY 30 Days Qty: 1 RF: 0 metoprolol succinate 50 mg Tablet Extended Release 24 Hr 50 mg PO BID 30 Days Qty: 60 RF: 0 torsemide 10 mg Tablet 10 mg PO BID 30 Days Qty: 60 RF: 0 spironolactone 25 mg Tablet 25 mg PO BID 30 Days Qty: 60 RF: 0 Continued aspirin 81 mg Tablet,Delayed Release (Dr/Ec) 81 mg PO DAILY RF: 0 atorvastatin 40 mg tablet 60 mg PO DAILY RF: 0 clopidogrel 75 mg tablet 75 mg PO DAILY RF: 0 fluticasone propionate 50 mcg/actuation spray,suspension 2 spray intranasal DAILY RF: 0 nitroglycerin 0.4 mg tablet, sublingual 0.4 mg sublingual UD PRN (Reason: Chest Pain) RF: 0 tramadol 50 mg tablet 50 mg PO BID PRN (Reason: Severe Pain (Scale Score 7-10)) RF: 0 Probiotic Acidophilus 1.5 mg (250 million cell) Capsule 250 mmu cells PO DAILY RF: 0 levothyroxine 75 mcg tablet 75 mcg PO DAILYBB RF: 0 Changed potassium chloride 10 mEq capsule, extended release 30 meq PO DAILY Qty: 0 RF: 0 Discontinued amiodarone 100 mg tablet 100 mg PO DAILY RF: 0 doxycycline hyclate 100 mg Capsule 100 mg PO BID RF: 0 metoprolol succinate 25 mg tablet extended release 24 hr 25 mg PO DAILY RF: 0 torsemide 20 mg tablet 20 mg PO UD RF: 0 potassium chloride 10 mEq capsule, extended release 40 meq PO Q2D RF: 0 potassium chloride [Klor-Con M10] 10 mEq tablet,ER particles/crystals 20 meq PO Q2D RF: 0 potassium chloride [Klor-Con M10] 10 mEq tablet,ER particles/crystals 40 meq PO Q2D RF: 0 cefpodoxime 200 mg tablet 200 mg PO BID RF: 0 Discharge Orders: Discharge Order (Routine); Ordered 08/07/21 Ordered By: Albertina Torres Admission Data Admit Date/Time: 07/31/21 15:31 Attending Provider: Albertina Torres Admit Provider: Silverio Nicholson Primary Care Provider: Gabo Cruz Other Providers: Silverio Nicholson ; Cedric Chase ; [facility] ; Jean-Claude Sheriff ; Luis E Carter ; Perry Bates ; Brett Chino ; Jorge A Delcid ; Ale Gunter Other Interventions: Discharge Summary Assessment (RN) Last Done: 08/07/21 12:34
[2021-08-08] MEDS ORDERED: UMECLIDINIUM BROMIDE 62.5MCG/BLISTER 7 PUFFS/INHALER INH SCH (09:00)
== END 2021-08-07 15:48 | disposition home health service (06) | DRG 291 ==
LOC: ED 11:37 → 2N 15:31 → SUATTDRO 15:31 → 2N 17:27